=== PATIENT | female | born 1955 | race Caucasian/White ===

== ENCOUNTER 2023-09-24 09:42 | Outpatient (REF) | payer MEDICARE, OTHER, SELFPAY ==
[2023-09-24 13:03] LABS: MANUAL DIFF FLAG NO
[2023-09-24 13:25] LABS: Basophils Absolute Auto 0.1 X10*3/uL (0.0-0.2); Basophils Percent Auto 0.9 % (0-2); Eosinophils Absolute Auto 0.6 X10*3/uL (0.0-0.4); Eosinophils Percent Auto 5.6 % (0-4); Hematocrit 39.1 % (37.0-47.0); Hemoglobin 12.7 g/dl (12.0-16.0); Imm Gran Abs Auto 0.03 X10*3/uL (0.00-0.03); Imm Gran Pct Auto 0.3 % (0.0-0.4); Lymphocytes Absolute Auto 1.9 X10*3/uL (1.2-4.9); Mean Corpuscular HGB Conc 32.5 g/dl (31.0-35.0); Mean Corpuscular Hemoglobin 32.2 pg (27.0-33.0); Mean Corpuscular Volume 99.2 fL (80.0-98.0); Mean Platelet Volume 10.4 fL (9.4-12.3); Monocytes Absolute Auto 0.6 X10*3/uL (0.1-1.2); Monocytes Percent Auto 5.3 % (2-11); Neutrophils Absolute Auto 7.2 x10*3/uL (2.0-8.3); Neutrophils Percent Auto 69.9 % (45-73); Platelet Count 271 X10*3/uL (160-400); Red Blood Count 3.94 X10*6/uL (4.20-5.50); Red Cell Distribution Width 13.3 % (11.0-16.0); White Blood Count 10.3 X10*3/uL (4.8-10.8)
[2023-09-24 13:34] LABS: Anion Gap 13 (12-20); Blood Urea Nitrogen 20 mg/dL (9-16); Calcium 9.1 mg/dL (8.4-10.2); Carbon Dioxide 25 mmol/L (22-29); Chloride 107 mmol/L (96-108); Estimated Glomerular Filt Rate 32; Potassium 4.7 mmol/L (3.3-5.1); Sodium 140 mmol/L (135-145)
[2023-09-24 14:19] LABS: Creatinine Urine 291.26 mg/dL; Total Protein Urine Random 30 mg/dL (<12)
== END 2023-09-24 09:43 | disposition home or self-care (01) ==
LOC: HO.HMGCLDS 09:42
PROVIDERS: Visit Provider Internal Medicine Nephrology
DX: I10 Essential (primary) hypertension (principal)
CPT/HCPCS: 36415; 80051; 82310; 82565; 82570; 84156; 84520; 85025

== ENCOUNTER 2023-09-26 12:15 | Outpatient (AMB) | payer MEDICARE, OTHER, SELFPAY ==
--- NOTE | 2023-09-26 12:14 | HO.NEPHOV ---
HPI HPI Comments History of Present Illness Details I had the pleasure of seeing Anneliese in follow-up of her chronic kidney disease and hypertension. Her blood sugars are well controlled on metformin. She is hypertensive and is on 3 medications including valsartan, atenolol and amlodipine. She has not a smoker. Her dad had ESRD from diabetes mellitus and at age of 76. Her mother's mother had anti GBM disease. She had kidney stones when she was young. She has family history of kidney stones.(daughter and brother). She used to take Aleve in the past but does not take these days. She is on allopurinol for hyperuricemia. She has osteopenia as well as osteoporosis. She denies any hematuria, froth or foam in the urine. She has no history of edema, hearing issues, epistaxis, history of coronary artery disease, renal artery stenosis, congestive heart failure, peripheral arterial disease, carotid stenosis or CVA. She has no history of retinopathy or neuropathy. Her serum creatinine has been stable around 1.6. 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 Calculus of kidney Hypertension Surgical History History of squamous cell carcinoma excision History of parathyroidectomy Family History Father Diabetes Kidney disease Brother Diabetes Hypertension Maternal Grandmother Kidney disease Social History Alcohol intake: never Patient Tobacco Use Status: Never used Tobacco Vital Signs 09/26/23 12:15 Height 5 ft Weight 198 lb 2 oz BMI 38.7 BP 130/70 Blood Pressure Location Lt brachial Position Sitting Pulse 68 Pulse Source Pulse Oximeter Pulse Oximetry (%) 96 Oxygen Delivery Method Room Air Physical Exam Vital Signs: Last Vital Signs Pulse 68 09/26/23 12:15 BP 146/74 H 09/26/23 12:15 Pulse Ox 96 09/26/23 12:15 Oxygen Delivery Method Room Air 09/26/23 12:15 BMI result Body Mass Index 38.7 Const General: comfortable and no acute distress Orientation/consciousness: patient oriented x3 HEENT Head: Yes normocephalic Mouth: Normal oral and palatal mucosa present Eyes EOM: EOMs intact bilaterally Neck Neck: Yes supple Resp Auscultation: clear to auscultation bilaterally Cardio Jugular venous distension: no JVD Rate: regular rate GI Palpation (GI): Soft to palpation Auscultation: normal bowel sounds General: Yes no CVA tenderness Back/Spine/Pelvis Back: no CVA tenderness Skin General skin exam: no rashes or lesions noted Neuro General: patient oriented x3 and moves all extremities Extrem General: Yes no pedal edema Assessment & Plan Assessment & Plan (1) Hypertension: Code(s): I10 - Essential (primary) hypertension Qualifiers: Hypertension type: primary hypertension Qualified Code(s): I10 - Essential (primary) hypertension (2) CKD (chronic kidney disease) stage 3, GFR 30-59 ml/min: Code(s): N18.30 - Chronic kidney disease, stage 3 unspecified Qualifiers: Chronic kidney disease stage 3 subtype: stage 3a (GFR 45-59) Qualified Code(s): N18.31 - Chronic kidney disease, stage 3a Abdifatah Coy has chronic kidney disease for long time likely from hypertension. Doppler of her renal arteries in the past did not show any renal artery stenosis. She is on angiotensin receptor jus. She is on 3 blood pressure medications and her blood pressure has been at goal. She will be benefitted from losing some weight and maintaining low-sodium diet. She tries to keep up with good hydration. She is a great candidate for SGLT2 inhibitor in the future. I did not make any medication changes today. All her questions were answered. Follow-up lab work ordered. Follow-up appointment given. Orders: Orders Creatinine Today I10 - Essential (primary) hypertension, N18.30 - Chronic kidney disease, stage 3 unspecified Blood Urea Nitrogen Today I10 - Essential (primary) hypertension, N18.30 - Chronic kidney disease, stage 3 unspecified Electrolytes Today I10 - Essential (primary) hypertension, N18.30 - Chronic kidney disease, stage 3 unspecified Protein Creatinine Ratio, Ur Today I10 - Essential (primary) hypertension, N18.30 - Chronic kidney disease, stage 3 unspecified Coding Level of Care Code Est Pt Level 4 (08357) Diagnoses Primary hypertension I10 Hypertension type: primary hypertension Stage 3a chronic kidney disease N18.31 Chronic kidney disease stage 3 subtype: stage 3a (GFR 45-59) Results Reviewed Nephrology Results: Hgb 12.7 g/dl (12.0-16.0) 09/24/23 WBC 10.3 X10*3/uL (4.8-10.8) 09/24/23 Plt Count 271 X10*3/uL (160-400) 09/24/23 Sodium 140 mmol/L (135-145) 09/24/23 Potassium 4.7 mmol/L (3.3-5.1) 09/24/23 Chloride 107 mmol/L (96-108) 09/24/23 Carbon Dioxide 25 mmol/L (22-29) 09/24/23 BUN 20 mg/dL (9-16) H 09/24/23 Creatinine 1.61 mg/dL (0.5-1.4) H 09/24/23 Calcium 9.1 mg/dL (8.4-10.2) 09/24/23 Urine Creatinine 291.26 mg/dL 09/24/23 Protein/Creatinin Ratio 0.10 (<0.2) 09/24/23
[2023-09-26 12:15] VITALS: BP 130/70; PULSE 68; O2SAT 96; BMI 38.7
== END 2023-09-26 12:58 | disposition home or self-care (01) ==
LOC: HO.HKA 12:15
PROVIDERS: Visit Provider Internal Medicine Nephrology
DX: I10 Essential (primary) hypertension (principal); N18.31 Chronic kidney disease, stage 3a
CPT/HCPCS: 99214

== ENCOUNTER → 2023-09-26 12:15 | Outpatient (BNVA) | payer MEDICARE, OTHER, SELFPAY | PROVIDERS: Visit Provider Internal Medicine Nephrology | DX: I12.9 Hypertensive chronic kidney disease with stage 1 through stage 4 chronic kidney disease, or unspecified chronic kidney disease (principal); E11.22 Type 2 diabetes mellitus with diabetic chronic kidney disease; N18.31 Chronic kidney disease, stage 3a; Z79.84 Long term (current) use of oral hypoglycemic drugs; Z79.899 Other long term (current) drug therapy | CPT/HCPCS: 99212 ==

== ENCOUNTER 2024-03-21 10:42 | Outpatient (REF) | payer MEDICARE, OTHER, SELFPAY ==
[2024-03-21 14:18] LABS: Anion Gap 13 (12-20); Blood Urea Nitrogen 20 mg/dL (9-16); Carbon Dioxide 22 mmol/L (22-29); Chloride 108 mmol/L (96-108); Estimated Glomerular Filt Rate 38; Potassium 4.9 mmol/L (3.3-5.1); Sodium 138 mmol/L (135-145)
[2024-03-21 14:42] LABS: Creatinine Urine 114.25 mg/dL; Protein/Creatinine Ratio, Ur 0.11 (<0.2); Total Protein Urine Random 13 mg/dL (<12)
== END 2024-03-21 10:43 | disposition home or self-care (01) ==
LOC: HO.HMGCLDS 10:42
PROVIDERS: Visit Provider Internal Medicine Nephrology
DX: I12.9 Hypertensive chronic kidney disease with stage 1 through stage 4 chronic kidney disease, or unspecified chronic kidney disease (principal); N18.30 Chronic kidney disease, stage 3 unspecified
CPT/HCPCS: 36415; 80051; 82565; 82570; 84156; 84520

== ENCOUNTER 2024-03-26 10:20 | Outpatient (AMB) | payer MEDICARE, OTHER, SELFPAY ==
[2024-03-26 10:22] VITALS: BP 124/60; PULSE 63; O2SAT 98; BMI 38.3
--- NOTE | 2024-03-26 10:22 | HO.NEPHOV_ITS ---
Vital Signs 03/26/24 10:22 Height 5 ft Weight 196 lb 4 oz BMI 38.3 BP 124/60 Blood Pressure Location Rt brachial Position Sitting Pulse 63 Pulse Source Pulse Oximeter Pulse Oximetry (%) 98 Oxygen Delivery Method Room Air Intake Visit Reasons: CKD/ 6 MO FU- Conf Employee Development Director Required: No Accompanied by: Self / Same As Patient Allergies No Known Allergies Allergy (Verified 03/26/24 10:25) HPI Comments Details: I had the pleasure of seeing Anneliese in follow-up of her chronic kidney disease and hypertension. Her blood sugars are well controlled on metformin. She is hypertensive and is on 3 medications including valsartan, atenolol and amlodipine. She has not a smoker. Her dad had ESRD from diabetes mellitus and at age of 76. Her mother's mother had anti GBM disease. She had kidney stones when she was young. She has family history of kidney sto maya.(daughter and brother). She used to take Aleve in the past but does not take these days. She is on allopurinol for hyperuricemia. She has osteopenia as well as osteoporosis. She denies any hematuria, froth or foam in the urine. She has no history of edema, hearing issues, epistaxis, history of coronary artery disease, renal artery stenosis, congestive heart failure, peripheral arterial disease, carotid stenosis or CVA. She has no history of retinopathy or neuropathy. 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 Calculus of kidney Hypertension Surgical History History of squamous cell carcinoma excision History of parathyroidectomy Family History Father Diabetes Kidney disease Brother Diabetes Hypertension Maternal Grandmother Kidney disease Social History Alcohol intake: never Patient Tobacco Use Status: Never used Tobacco Review of Systems Const All systems reviewed & are unremarkable except as noted in HPI and below Physical Exam Vital Signs: Last Vital Signs Pulse 63 03/26/24 10:22 BP 124/60 03/26/24 10:22 Pulse Ox 98 03/26/24 10:22 Oxygen Delivery Method Room Air 03/26/24 10:22 BMI result Body Mass Index 38.3 Const General: comfortable and no acute distress Orientation/consciousness: patient oriented x3 HEENT Head: Yes normocephalic Mouth: Normal oral and palatal mucosa present Eyes EOM: EOMs intact bilaterally Neck Neck: Yes supple Resp Auscultation: clear to auscultation bilaterally Cardio Jugular venous distension: no JVD Rate: regular rate GI Palpation (GI): Soft to palpation Auscultation: normal bowel sounds General: Yes no CVA tenderness Back/Spine/Pelvis Back: no CVA tenderness Skin General skin exam: no rashes or lesions noted Neuro General: patient oriented x3 and moves all extremities Extrem General: Yes no pedal edema Results Reviewed Nephrology Results: Hgb 12.7 g/dl (12.0-16.0) 09/24/23 WBC 10.3 X10*3/uL (4.8-10.8) 09/24/23 Plt Count 271 X10*3/uL (160-400) 09/24/23 Sodium 138 mmol/L (135-145) 03/21/24 Potassium 4.9 mmol/L (3.3-5.1) 03/21/24 Chloride 108 mmol/L (96-108) 03/21/24 Carbon Dioxide 22 mmol/L (22-29) 03/21/24 BUN 20 mg/dL (9-16) H 03/21/24 Creatinine 1.38 mg/dL (0.5-1.4) 03/21/24 Calcium 9.1 mg/dL (8.4-10.2) 09/24/23 Urine Creatinine 114.25 mg/dL 03/21/24 Protein/Creatinin Ratio 0.11 (<0.2) 03/21/24 Assessment & Plan Assessment & Plan (1) Hypertension: Code(s): I10 - Essential (primary) hypertension Category: Medical Qualifiers: Hypertension type: primary hypertension Qualified Code(s): I10 - Essential (primary) hypertension (2) CKD (chronic kidney disease) stage 3, GFR 30-59 ml/min: Code(s): N18.30 - Chronic kidney disease, stage 3 unspecified Category: Medical Qualifiers: Chronic kidney disease stage 3 subtype: stage 3a (GFR 45-59) Qualified Code(s): N18.31 - Chronic kidney disease, stage 3a Abdifatah Coy has chronic kidney disease for long time likely from hypertension. Doppler of her renal arteries in the past did not show any renal artery stenosis. She is on angiotensin receptor jus. She is on 3 blood pressure medications and her blood pressure has been at goal. She will be benefitted from losing some weight and maintaining low-sodium diet. She tries to keep up with good hydration. She is a great candidate for SGLT2 inhibitor in the future. I did not make any medication changes today. All her questions were answered. Follow-up lab work ordered. Follow-up appointment given. Orders: Orders Creatinine 03/26/24 I10 - Essential (primary) hypertension, N18.31 - Chronic kidney disease, stage 3a Creatinine 6 Months I10 - Essential (primary) hypertension, N18.31 - Chronic kidney disease, stage 3a Blood Urea Nitrogen 6 Months I10 - Essential (primary) hypertension, N18.31 - Chronic kidney disease, stage 3a Blood Urea Nitrogen 03/26/24 I10 - Essential (primary) hypertension, N18.31 - Chronic kidney disease, stage 3a Electrolytes 03/26/24 I10 - Essential (primary) hypertension, N18.31 - Chronic kidney disease, stage 3a Electrolytes 6 Months I10 - Essential (primary) hypertension, N18.31 - Chronic kidney disease, stage 3a Vitamin D 25-OH Total 03/26/24 I10 - Essential (primary) hypertension, N18.31 - Chronic kidney disease, stage 3a Coding Level of Care Code Est Pt Level 4 (57714) Diagnoses Primary hypertension I10 Hypertension type: primary hypertension Stage 3a chronic kidney disease N18.31 Chronic kidney disease stage 3 subtype: stage 3a (GFR 45-59)
== END 2024-03-26 10:43 | disposition home or self-care (01) ==
PROVIDERS: Visit Provider Internal Medicine Nephrology
DX: I10 Essential (primary) hypertension (principal); N18.31 Chronic kidney disease, stage 3a
CPT/HCPCS: 99214

== ENCOUNTER → 2024-03-26 10:20 | Outpatient (BNVA) | payer MEDICARE, OTHER, SELFPAY | PROVIDERS: Visit Provider Internal Medicine Nephrology | DX: I12.9 Hypertensive chronic kidney disease with stage 1 through stage 4 chronic kidney disease, or unspecified chronic kidney disease (principal); E11.22 Type 2 diabetes mellitus with diabetic chronic kidney disease; N18.31 Chronic kidney disease, stage 3a; Z79.84 Long term (current) use of oral hypoglycemic drugs; Z79.899 Other long term (current) drug therapy | CPT/HCPCS: 99212 ==

== ENCOUNTER 2024-09-22 10:20 | Outpatient (REF) | payer MEDICARE, OTHER, SELFPAY ==
--- OUTSIDE RECORDS SUMMARY | 2024-09-22 11:40 | XMS_ITS | Clinical Summary ---
Author Organization [facility] Address [address] [place] [address] Phone Care Team Providers Care Still Runner Name Role Phone Julia Garrido [employer]IN[employer]-C Primary Care Provider + Allergies No known active allergies Medications allopurinol (ZYLOPRIM) 100 MG tablet Take 50 mg by mouth in the morning. 02/06/2022 Active amLODIPine (NORVASC) 10 MG tablet Take 10 mg by mouth in the morning. 06/17/2021 Active atenolol (TENORMIN) 25 MG tablet Take 25 mg by mouth in the morning. Active atorvastatin (LIPITOR) 40 MG tablet Take 40 mg by mouth in the morning. Active valsartan (DIOVAN) 320 MG tablet Take 320 mg by mouth in the morning. Active omeprazole OTC (PriLOSEC OTC) 20 MG EC tablet Take 20 mg by mouth in the morning. Active metFORMIN (GLUCOPHAGE) 500 MG tablet Take 500 mg by mouth in the morning and 500 mg in the evening. Take with meals. Active Calcium-Magnesi um-Vitamin D (CITRACAL CALCIUM+D PO) Take 650 mg by mouth 2 (two) times a day Active cholecalciferol (VITAMIN D-3) 25 MCG (1000 UT) capsule Take 1,000 Units by mouth 1 (one) time each day Active Multiple Vitamin (multivitamin) tablet Take 1 tablet by mouth 1 (one) time each day Active Active Problems Problem Noted Date Diagnosed Date Stage 3a chronic kidney disease 03/21/2023 Essential hypertension 02/06/2022 Stage 3b chronic kidney disease 12/17/2021 Overview (10/23/2022): Baseline 1.4-1.5 creatinine Baseline GFR 31-41 Resolved Problems Problem Noted Date Diagnosed Date Resolved Date Other osteoporosis without c urrent pathological fracture 06/28/2022 10/24/2022 Overview (10/24/2022): Last Assessment & Plan: The patient has progressed to osteoporosis with just calcium and vitamin D supplementation. She has decreased GFR so I recommend Prolia subcutaneous injections. She informs me that she does plan on traveling to [place] and since this medication is administered every 6 months she needs to check her schedule first to determine when she should start injections. She is going to contact our office for a date that is suitable for her to start Prolia administration. Chronic cough 03/16/2022 10/24/2022 Primary osteoarthritis of left knee 03/16/2022 10/24/2022 Idiopathic chronic gout of l eft knee without tophus 12/21/2021 10/23/2022 Type 2 diabetes mellitus 12/17/202104/2023 Severe obesity 12/06/2021 10/23/2022 Osteopenia 07/04/2018 10/23/2022 Overview (10/23/2022): Last Assessment & Plan: The patient should continue calcium and vitamin D supplementation. She is due for repeat DXA scan in June 2022 the study has been requested. In the meantime N-telopeptide levels are stable. Hopefully she will have improved bone mineral density prior to the follow-up visit in 1 year. Vitamin D deficiency 07/04/2018 023 Overview (10/23/2022): Last Assessment & Plan: Vitamin D levels are within the reference range with cholecalciferol 2000 units and possibly an additional 400 units of vitamin D. No changes to current regimen. Nontoxic uninodular goiter 04/08/2018 0 10/23/2022 Overview (10/23/2022): She is due for repeat ultrasound of the thyroid gland in April 2023. Last Assessment & Plan: He has a left lobe nodule with not very suspicious features but it was biopsied prior to parathyroidectomy to ensure it was benign otherwise the patient may require total parathyroidectomy right lobectomy in addition to parathyroidectomy. It was found to be benign. She repeated ultrasound 2 years after her last. This showed that the nodule has decreased in size. She now has to repeat the ultrasound in 2022. This is something that she should remember because the ultrasound can be potentially ordered by her primary care physician or me. Again if the ultrasound in 2022 is stable then she should repeat the ultrasound by 2027. After 11 years of monitoring she does not require further monitoring assuming the nodule has remained stable. Primary hyperparathyroidism 04/08/2018 10/23/2022 Overview (10/23/2022): Last Assessment & Plan: Status post parathyroidectomy intact PTH levels are now within the reference range so it does appear that she no longer has hyperparathyroidism. Would not work this up further. Immunizations Name Administration Dates Next Due Influenza Split High Dose Preservative Free IM 0 04/11/2021 Influenza, Quadrivalent, Preservative Free 04/29 Influenza, Unspecified 04/30/2019,04/01/2018 Sharmin SARS-COV-2 09/25/2020 Pneumococcal Conjugate 13-Valent 02/12/2019 Shingrix 09/09/2019,05/27/2019 Td 11/19/2006 Tdap 12/19/2013 Family History Medical History Relation Comments Diabetes Brother Hypertension Brother Diabetes Father Kidney disease Father Kidney disease Maternal Grandmother Relation Status Comments Brother Father Maternal Grandmother Mother Social History Tobacco Use Types Packs/Day Years Used Date Smoking Tobacco: Never Smokeless Tobacco: Never Tobacco Cessation:Counseling Given: Not Answered Alcohol Use Standard Drinks/Week Comments Never 0 (1 standard drink = 0.6 oz pur e alcohol) Comments Unknown Sex and Gender Information Value Date Recorded Sex Assigned at Not on file Legal Sex Female 10:04 AM EDT Gender Identity Not on file Sexual Orientation Not on file Last Filed Vital Signs Vital Sign Reading Time Taken Comments Blood Pressure 114/70 03/21/2023 1:55 PM EDT Pulse 64 10/24/2022 9:53 AM EDT Temperature - - Respiratory Rate - - Oxygen Saturation - - Inhaled Oxygen Concentration - - Weight 89.4 kg (197 lb 3.2 oz) 03/21/2023 1:55 P M EDT Height - - Body Mass Index - - Plan of Treatment Health Maintenance Due Date Last Done Comments Breast Cancer Screening 1955 Colorectal Cancer Screening: Annual FOBT 2002 Colorectal Cancer Screening: Colonoscopy 2002 Colorectal Cancer Screening: Sigmoidoscopy 2002 Pneumococcal Vaccine: 65+ Years (2 of 2 - PPSV23 or PCV20) 04/09/2019 02/12/2019 Influenza Vaccine (#1) 2024 1, 04/29/2020, 04/30/2019, Additional history exists Hepatitis B Vaccine Aged Out No longe r eligible based on patient's age to complete this topic Insurance [facility] [place] [address] MEDICARE [facility] [place] [address] MEDICARE [facility] Care Teams Still Runner Relationship Specialty Start Date End Date Julia Garrido NP-C [address], [address] [place] [address] PCP - General Nurse Practitioner 10/24/22
[2024-09-22 13:46] LABS: Anion Gap 14 (12-20); Blood Urea Nitrogen 23 mg/dL (9-16); Carbon Dioxide 22 mmol/L (22-29); Chloride 109 mmol/L (96-108); Estimated Glomerular Filt Rate 32; Potassium 5.3 mmol/L (3.3-5.1); Sodium 140 mmol/L (135-145)
== END 2024-09-22 10:21 | disposition home or self-care (01) ==
LOC: HO.HMGCLDS 10:20
PROVIDERS: PCP Nurse Practitioner Primary Care; Visit Provider Internal Medicine Nephrology
DX: N18.31 Chronic kidney disease, stage 3a (principal); I10 Essential (primary) hypertension
CPT/HCPCS: 36415; 80051; 82565; 84520

== ENCOUNTER 2024-09-24 09:50 | Outpatient (AMB) | payer MEDICARE, OTHER, SELFPAY ==
--- NOTE | 2024-09-24 09:54 | HO.NEPHOV_ITS ---
Vital Signs 09/24/24 09:55 Height 5 ft Weight 197 lb 6 oz BMI 38.5 BP 138/70 Blood Pressure Location Lt brachial Position Sitting Pulse 68 Pulse Source Pulse Oximeter Pulse Oximetry (%) 96 Oxygen Delivery Method Room Air Intake Visit Reasons: CKD- Cell is disconnected-Home no voicemail Receiving Operator Required: No Accompanied by: Self / Same As Patient Allergies No Known Allergies Allergy (Verified 09/24/24 09:55) HPI Comments Details: Anneliese was seen in follow-up of her chronic kidney disease and hypertension. Her blood sugars are well controlled on metformin. She is hypertensive and is on 3 medications including valsartan, atenolol and amlodipine. She has not a smoker. Her dad had ESRD from diabetes mellitus and at age of 76. Her mother's mother had anti GBM disease. She had kidney stones when she was young. She has family history of kidney stones.(daughter and brother). She used to take Aleve in the past but does not take these days. She is on allopurinol for hyperuricemia. She has osteopenia as well as osteoporosis. She denies any hematuria, froth or foam in the urine. She has no history of edema, hearing issues, epistaxis, history of coronary artery disease, renal artery stenosis, congestive heart failure, peripheral arterial disease, carotid stenosis or CVA. She has no history of retinopathy or neuropathy. 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 Calculus of kidney Hypertension Surgical History History of squamous cell carcinoma excision History of parathyroidectomy Family History Father Diabetes Kidney disease Brother Diabetes Hypertension Maternal Grandmother Kidney disease Social History Alcohol intake: never Patient Tobacco Use Status: Never used Tobacco Review of Systems Const All systems reviewed & are unremarkable except as noted in HPI and below Physical Exam Vital Signs: Last Vital Signs Pulse 68 09/24/24 09:55 BP 138/70 09/24/24 09:55 Pulse Ox 96 09/24/24 09:55 Oxygen Delivery Method Room Air 09/24/24 09:55 BMI result Body Mass Index 38.5 Const General: comfortable and no acute distress Orientation/consciousness: patient oriented x3 HEENT Head: Yes normocephalic Mouth: Normal oral and palatal mucosa present Eyes EOM: EOMs intact bilaterally Neck Neck: Yes supple Resp Auscultation: clear to auscultation bilaterally Cardio Jugular venous distension: no JVD Rate: regular rate GI Palpation (GI): Soft to palpation Auscultation: normal bowel sounds General: Yes no CVA tenderness Back/Spine/Pelvis Back: no CVA tenderness Skin General skin exam: no rashes or lesions noted Neuro General: patient oriented x3 and moves all extremities Extrem General: Yes no pedal edema Results Reviewed Nephrology Results: Hgb 12.7 g/dl (12.0-16.0) 09/24/23 WBC 10.3 X10*3/uL (4.8-10.8) 09/24/23 Plt Count 271 X10*3/uL (160-400) 09/24/23 Sodium 140 mmol/L (135-145) 09/22/24 Potassium 5.3 mmol/L (3.3-5.1) H 09/22/24 Chloride 109 mmol/L (96-108) H 09/22/24 Carbon Dioxide 22 mmol/L (22-29) 09/22/24 BUN 23 mg/dL (9-16) H 09/22/24 Creatinine 1.61 mg/dL (0.5-1.4) H 09/22/24 Calcium 9.1 mg/dL (8.4-10.2) 09/24/23 Urine Creatinine 114.25 mg/dL 03/21/24 Protein/Creatinin Ratio 0.11 (<0.2) 03/21/24 Assessment & Plan Assessment & Plan (1) CKD (chronic kidney disease) stage 3, GFR 30-59 ml/min: Code(s): N18.30 - Chronic kidney disease, stage 3 unspecified Category: Medical Qualifiers: Chronic kidney disease stage 3 subtype: stage 3a (GFR 45-59) Qualified Code(s): N18.31 - Chronic kidney disease, stage 3a (2) Hypertension: Code(s): I10 - Essential (primary) hypertension Category: Medical Qualifiers: Hypertension type: primary hypertension Qualified Code(s): I10 - Essential (primary) hypertension (3) Hyperkalemia: Code(s): E87.5 - Hyperkalemia Category: Medical Plan Anneliese has chronic kidney disease for long time likely from hypertension. Doppler of her renal arteries in the past did not show any renal artery stenosis. She is on angiotensin receptor jus. She is on three blood pressure medications and her blood pressure has been at goal. She will be benefitted from losing some weight and maintaining low-sodium diet. She tries to keep up with good hydration. She is a great candidate for SGLT2 inhibitor after discontinuing metformin. I gave her a list of food with high K. Her repeat K is ordered. I did not make any medication changes today. Follow-up appointmen t given. Orders: Orders Electrolytes 3 Months E87.5 - Hyperkalemia, I10 - Essential (primary) hypertension, N18.31 - Chronic kidney disease, stage 3a Creatinine 3 Months E87.5 - Hyperkalemia, I10 - Essential (primary) hypertension, N18.31 - Chronic kidney disease, stage 3a Blood Urea Nitrogen 3 Months E87.5 - Hyperkalemia, I10 - Essential (primary) hypertension, N18.31 - Chronic kidney disease, stage 3a Coding Level of Care Code Est Pt Level 4 (97272) Diagnoses Stage 3a chronic kidney disease N18.31 Chronic kidney disease stage 3 subtype: stage 3a (GFR 45-59) Primary hypertension I10 Hypertension type: primary hypertension Hyperkalemia E87.5
[2024-09-24 09:55] VITALS: BP 138/70; PULSE 68; O2SAT 96; BMI 38.5
--- OUTSIDE RECORDS SUMMARY | 2024-09-24 10:57 | XMS_ITS | Clinical Summary ---
Author Organization [facility] Address [address] [place] [address] Phone Care Team Providers Care Watch Dial Maker Name Role Phone Julia Garrido MOLECULAR GENETIC PATHOLOGIST-C Primary Care Provider + Allergies No known [...] that she does plan on traveling to [place] and since this medication is administered every [...] patient's age to complete this topic Insurance [facility] [id number] MEDICARE [facility] [place] [address] MEDICARE [facility] Care Teams Watch Dial Maker Relationship Specialty Start Date End Date Julia Garrido NP-C [address], [address] [place] [address] PCP - General Nurse Practitioner 10/24/22
== END 2024-09-24 10:15 | disposition home or self-care (01) ==
LOC: HO.HKA 09:50
PROVIDERS: PCP Nurse Practitioner Primary Care; Visit Provider Internal Medicine Nephrology
DX: N18.31 Chronic kidney disease, stage 3a (principal); I10 Essential (primary) hypertension; E87.5 Hyperkalemia
CPT/HCPCS: 99214

== ENCOUNTER → 2024-09-24 09:50 | Outpatient (BNVA) | payer MEDICARE, OTHER, SELFPAY | PROVIDERS: PCP Nurse Practitioner Primary Care; Visit Provider Internal Medicine Nephrology | DX: I12.9 Hypertensive chronic kidney disease with stage 1 through stage 4 chronic kidney disease, or unspecified chronic kidney disease (principal); N18.31 Chronic kidney disease, stage 3a; E87.5 Hyperkalemia | CPT/HCPCS: 99212 ==

== ENCOUNTER 2024-12-18 10:46 | Outpatient (REF) | payer MEDICARE, OTHER, SELFPAY ==
--- OUTSIDE RECORDS SUMMARY | 2024-12-18 12:39 | XMS_ITS | Clinical Summary ---
Author Organization [facility] Address [address] [place] [address] Phone Care Team Providers Care Automobile Parker Name Role Phone Julia Garrido ASP WEB DEVELOPER-C Primary Care Provider + Allergies No known [...] that she does plan on traveling to [place] and since this medication is administered every [...] Would not work this up further. Immunizations Immunization Administration Dates Next Due Influenza Split High [...] Colorectal Cancer Screening: Sigmoidoscopy 2002 Pneumococcal Vaccine: 50+ Years (2 of 2 - PPSV23, PCV20, or PCV21) 04/09/2019 02/12/2019 Influenza Vaccine (Season Ended) 2025 04/11/2021, 04/29/2020, 04/30/2019, Additional history exists Hepatitis B Vaccine Aged Out No longe r eligible based on patient's age to complete [place] [id number] Medicare [facility] [place] [id number] Medicare [facility] Care Teams Automobile Parker Relationship Specialty Start Date End Date Julia Garrido NP-C [address], [address] [place] [address] PCP - General Nurse Practitioner 10/24/22
[2024-12-18 14:58] LABS: Anion Gap 12 (12-20); Blood Urea Nitrogen 26 mg/dL (9-16); Carbon Dioxide 20 mmol/L (22-29); Chloride 111 mmol/L (96-108); Estimated Glomerular Filt Rate 28; Potassium 4.4 mmol/L (3.3-5.1); Sodium 139 mmol/L (135-145)
== END 2024-12-18 10:47 | disposition home or self-care (01) ==
LOC: HO.HMGCLDS 10:46
PROVIDERS: PCP Nurse Practitioner Primary Care; Visit Provider Internal Medicine Nephrology
DX: E87.5 Hyperkalemia (principal); N18.31 Chronic kidney disease, stage 3a; I10 Essential (primary) hypertension
CPT/HCPCS: 36415; 80051; 82306; 82565; 84520

== ENCOUNTER 2025-02-04 14:16 | Outpatient (AMB) | payer MEDICARE, OTHER, SELFPAY ==
[2025-02-04 14:24] VITALS: BP 140/70; PULSE 71; O2SAT 96; BMI 37.4
--- NOTE | 2025-02-04 14:24 | HO.NEPHOV_ITS ---
Vital Signs 02/04/25 14:24 Height 5 ft Weight 191 lb 8 oz BMI 37.4 BP 140/70 H Blood Pressure Location Rt brachial Position Sitting Pulse 71 Pulse Source Pulse Oximeter Pulse Oximetry (%) 96 Oxygen Delivery Method Room Air Intake Visit Reasons: R/S 01/28/25-[facility] Demo Specialist Required: No Accompanied by: Self / Same As Patient Allergies No Known Allergies Allergy (Verified 02/04/25 14:24) HPI Comments Details: Anneliese was seen in follow-up of her chronic kidney disease and hypertension. Her blood sugars are well controlled on metformin. She is hypertensive and is on 3 medications including valsartan, atenolol and amlodipine. She has not a smoker. Her dad had ESRD from diabetes mellitus and at age of 76. Her mother's mother had anti GBM disease. She had kidney stones when she was young. She has family history of kidney stones.(daughter and brother). She used to take Aleve in the past but does not take these days. She is on allopurinol for hyperuricemia. She has osteopenia as well as osteoporosis. She denies any hematuria, froth or foam in the urine. She has no history of edema, hearing issues, epistaxis, history of coronary artery disease, renal artery stenosis, congestive heart failure, peripheral arterial disease, carotid steno sis or CVA. She has no history of retinopathy or neuropathy. 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 Calculus of kidney Hypertension Surgical History History of squamous cell carcinoma excision History of parathyroidectomy Family History Father Diabetes Kidney disease Brother Diabetes Hypertension Maternal Grandmother Kidney disease Social History Alcohol intake: never Patient Tobacco Use Status: Never used Tobacco Review of Systems Const All systems reviewed & are unremarkable except as noted in HPI and below Physical Exam Vital Signs: Last Vital Signs Pulse 71 02/04/25 14:24 BP 140/70 H 02/04/25 14:24 Pulse Ox 96 02/04/25 14:24 Oxygen Delivery Method Room Air 02/04/25 14:24 BMI result Body Mass Index 37.4 Const General: comfortable and no acute distress Orientation/consciousness: patient oriented x3 HEENT Head: Yes normocephalic Mouth: Normal oral and palatal mucosa present Eyes EOM: EOMs intact bilaterally Neck Neck: Yes supple Resp Auscultation: clear to auscultation bilaterally Cardio Jugular venous distension: no JVD Rate: regular rate GI Palpation (GI): Soft to palpation Auscultation: normal bowel sounds General: Yes no CVA tenderness Back/Spine/Pelvis Back: no CVA tenderness Skin General skin exam: no rashes or lesions noted Neuro General: patient oriented x3 and moves all extremities Extrem General: Yes no pedal edema Results Reviewed Nephrology Results: Hgb, (12.0-16.0) 12.7 g/dl 09/24/23 WBC, (4.8-10.8) 10.3 X10*3/uL 09/24/23 Plt Count, (160-400) 271 X10*3/uL 09/24/23 Sodium, (135-145) 139 mmol/L 12/18/24 Potassium, (3.3-5.1) 4.4 mmol/L 12/18/24 Chloride, (96-108) 111 mmol/L H 12/18/24 Carbon Dioxide, (22-29) 20 mmol/L L 12/18/24 BUN, (9-16) 26 mg/dL H 12/18/24 Creatinine, (0.5-1.4) 1.80 mg/dL H 12/18/24 Calcium, (8.4-10.2) 9.1 mg/dL 09/24/23 Urine Creatinine 114.25 mg/dL 03/21/24 Protein/Creatinin Ratio, (<0.2) 0.11 03/21/24 Assessment & Plan Assessment & Plan (1) Hypertension: Code(s): I10 - Essential (primary) hypertension Category: Medical Qualifiers: Hypertension type: primary hypertension Qualified Code(s): I10 - Essential (primary) hypertension (2) CKD (chronic kidney disease) stage 3, GFR 30-59 ml/min: Code(s): N18.30 - Chronic kidney disease, stage 3 unspecified Category: Medical Qualifiers: Chronic kidney disease stage 3 subtype: stage 3a (GFR 45-59) Qualified Code(s): N18.31 - Chronic kidney disease, stage 3a Abdifatah Coy has chronic kidney disease for long time likely from hypertension. Doppler of her renal arteries in the past did not show any renal artery stenosis. She is on angiotensin receptor jus. She is on three blood pressure medications and her blood pressure has been at goal. She will be benefitted from losing some weight and maintaining low-sodium diet. She tries to keep up with good hydration. She is on SGLT2 inhibitor. If her serum creatinine goe sup, I plan to back off on ARB. I did not make any medication changes today. Follow-up appointment given Orders: Orders Creatinine 2 Months I10 - Essential (primary) hypertension, N18.31 - Chronic kidney disease, stage 3a Blood Urea Nitrogen 2 Months I10 - Essential (primary) hypertension, N18.31 - Chronic kidney disease, stage 3a Electrolytes 2 Months I10 - Essential (primary) hypertension, N18.31 - Chronic kidney disease, stage 3a Coding Level of Care Code Est Pt Level 4 (80240) Diagnoses Primary hypertension I10 Hypertension type: primary hypertension Stage 3a chronic kidney disease N18.31 Chronic kidney disease stage 3 subtype: stage 3a (GFR 45-59)
--- OUTSIDE RECORDS SUMMARY | 2025-02-04 14:58 | XMS_ITS | Clinical Summary ---
Author Organization [facility] Address [address] [place] [id number] Phone Care Team Providers Care Postal Worker Name Role Phone Julia Garrido NP Primary Care Provid er Allergies No known active allergies Medications omeprazole (PRILOSEC) 20 MG tablet Take 20 mg by mouth daily. Active atenolol (TENORMIN) 25 MG tablet Take 25 mg by mouth daily. Active CALCIUM ORAL Take 1 tablet by mouth 2 (two) times a day. Active valsartan (DIOVAN) 320 MG tablet Take 320 mg by mouth daily. Active atorvastatin (LIPITOR) 40 MG tablet Take 40 mg by mouth daily. Active amLODIPine (NORVASC) 10 MG tablet Take 10 mg by mouth daily. 1 Active cholecalciferol , vitamin D3, 25 mcg (1,000 unit) capsuleIndicati ons:Osteopenia of right hip TAKE 1 CAPSULE BY MOUTH EVERY DAY. 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 45 tablet 3 2 Active fluticasone propionate (FLOVENT HFA) 44 mcg/actuation inhaler Inhale 1 puff into the lungs 2 (two) times a day as needed (cough). 10.6 g 1 2 Active albuterol (PROAIR HFA) 90 mcg/actuation inhalerIndicati ons:Chronic cough Inhale 2 puffs into the lungs every 4 (four) hours as needed for wheezing or shortness of breath/dyspnea. 8.5 g 2 2 Active metFORMIN (GLUCOPHAGE) 500 MG tabletIndicatio ns:Type 2 diabetes mellitus with stage 3b chronic kidney disease, without long-term current use of insulin TAKE 1 TABLET TWICE A DAY WITH MEALS 180 tablet 1 4 Active Additional Information Patient not taking.Reported on 12/31/2024 JARDIANCE 25 mg tablet Take 25 mg by mouth daily. 5 Active Active Problems Problem Noted Date Diagnosed Date Other osteoporosis without current pathological fracture 06/28/2022 Assessment & Plan (07/01/2024 9:30 AM EST): The patient continues with calcium vitamin D supplements. Today she presents for her third Prolia injection. She has done very well status post parathyroidectomy with antiresorptive medications. The DXA scan shows that she has significant improvement and spine and total hip. The femoral neck did not show significant improvement but the T-scores last showing that there has been improvement. She will follow in 6 months with the nurse for Prolia injection in 1 year with me for management of osteoporosis and Prolia ministration. She was advised she needs to obtain lab work in 6 months prior to seeing the nurse and again in 1 year before seeing me. The lab work in a years time has to be done fasting without exercise and she should try to get it done 2 weeks prior to the visit. Assessment & Plan (06/28/2023 9:48 AM EST): She continues with calcium and vitamin D supplements and has decided to proceed with Prolia as she has Medicare so this is usually covered I do not need to do prior authorization. I will give her her first injection today. Assessment & Plan (06/28/2022 9:01 AM EST): The patient has progressed to osteoporosis with just calcium and vitamin D supplementation. She has decreased GFR so I recommend Prolia subcutaneous injections. She informs me that she does plan on traveling to [place] and since this medication is administered every 6 months she needs to check her schedule first to determine when she should start injections. She is going to contact our office for a date that is suitable for her to start Prolia administration. Chronic cough 03/16/2022 Primary osteoarthritis of left knee 03/16/2022 Essential hypertension 02/06/2022 Idiopathic chronic gout of left knee without top hus 12/21/2021 Stage 3b chronic kidney disease 12/17/2021 Overview (12/17/2021): Baseline 1.4-1.5 creatinine Baseline GFR 31-41 Type 2 diabetes mellitus wit h stage 3b chronic kidney disease, without long-term current use of insulin 12/17/2021 Class 2 severe obesity with body mass index (BMI) of 35 to 39.9 with serious comorbidity 12/06/2021 Vitamin D deficiency 07/04/2018 Assessment & Plan (02/17/2020 8:55 AM EDT): Vitamin D levels are within the reference range with cholecalciferol 2000 units and possibly an additional 400 units of vitamin D. No changes to current regimen. Assessment & Plan (10/04/2018 12:37 PM EDT): Vitamin D level improved but still deficient continue cholecalciferol 2000 units we will check a basic panel to see if the calcium levels increased while on vitamin D supplementation. Assessment & Plan (07/04/2018 2:37 PM EST): The patient is vitamin D deficient normally I will prescribed ergocalciferol 50,000 units to normalize but this may be potentially dangerous for patient who already has hypercalcemia I will prescribed cholecalciferol 2000 units daily and repeat levels in 3 months time. I did warn her that the serum calcium may increase that may cause increased symptoms of constipation irritability, polydipsia polyuria, if so she should call me and inform me. Primary hyperparathyroidism 04/08/2018 Assessment & Plan (02/17/2020 8:54 AM EDT): Status post parathyroidectomy intact PTH levels are now within the reference range so it does appear that she no longer has hyperparathyroidism. Would not work this up further. Assessment & Plan (02/06/2019 9:06 AM EDT): She underwent parathyroidectomy of the left and right superior parathyroid glands I do not have intact PTH levels I assume that these are within the reference range I will request intact PTH prior to the follow-up visit in approximately 1 year. Assessment & Plan (11/15/2018 8:47 AM EDT): The patient is being worked up for parathyroidectomy she will follow with Dr. Engel and I have advised her to return for follow-up after the surgery at that point we can proceed with further management of osteopenia. Assessment & Plan (10/04/2018 12:37 PM EDT): She has at least 2 indications for parathyroidectomy I will refer her for parathyroidectomy at [facility] with Dr. David Engel. Assessment & Plan (07/04/2018 2:36 PM EST): The patient has primary hyperparathyroidism she has at least 2 risk factors for parathyroidectomy if the serum calcium were to increase this will be a third. At this point I think that we can give her a small dose of vitamin D like at 2000 units daily to normalize the vitamin D and if the serum calcium rises above 11.3 then this will be a third indication. Nevertheless, she has a high risk for major osteoporotic fracture so technically we do not need the third risk if the patient is willing to have parathyroidectomy. I will give the patient some opportunity to think about it while we supplement vitamin D. Assessment & Plan (04/08/2018 3:46 PM EDT): I suspect that the patient has primary hyperparathyroidism based on elevated serum calcium and intact PTH levels. I need other lab work to confirm this such as 1, 25 dihydroxy vitamin D which is usually elevated in primary hyperparathyroidism. I will also check vitamin D levels. I will request a 24-hour urine calcium levels to see if these are elevated. I have also requested a DEXA scan for evaluation of osteopenia/osteoporosis including forearm bone mineral density measurement because hypoparathyroidism affects cortical bone first. I will request a CBC and if the patient is anemic I will check serum protein electrophoresis. I do not have a strong suspicion of multiple myeloma because the total protein is not elevated although she does have low albumin and low GFR. Nontoxic uninodular goiter 04/08/2018 Overview (06/28/2021): She is due for repeat ultrasound of the thyroid gland in April 2023. Assessment & Plan (07/01/2024 9:24 AM EST): The left lobe nodule appears to have decreased by 5% in the last 3 years at this point we will repeat ultrasound in 5 years time by 04/19/2028. If at that time the nodule is stable in size she does not need to continue serial ultrasound monitoring you usually monitor for 11 years. Assessment & Plan (06/28/2023 9:45 AM EST): The left lobe nodule appears to have decreased by 5% in the last 3 years at this point we will repeat ultrasound in 5 years time by 04/19/2028. If at that time the nodule is stable in size she does not need to continue serial ultrasound monitoring you usually monitor for 11 years. Assessment & Plan (06/28/2022 9:03 AM EST): She is due for repeat ultrasound on 04/19/2023 this has been requested. Assessment & Plan (06/29/2020 9:00 AM EST): He has a left lobe nodule with [...] monitoring assuming the nodule has remained stable. Assessment & Plan (02/17/2020 8:54 AM EDT): Patient with a nontoxic multinodular goiter nodules have been benign. She is due for repeat ultrasound in April. This has been requested. I asked her to call the radiology department if they do not call her to get the study done. She will be due for repeat ultrasound in 3 years time by 2022 after that point. Assessment & Plan (02/06/2019 9:05 AM EDT): Due for repeat ultrasound on 04/16/2020. I will not order this now. I will have her return in a year so I can request the studies. She would then have repeat ultrasound in 3 years then 5 years. At that point she would have completed serial monitoring. That is assuming she has had no changes. Assessment & Plan (11/15/2018 8:47 AM EDT): She has a large left lobe nodule that appears benign on sonogram with spongiform characteristics. Because the patient was undergoing parathyroidectomy biopsy was performed to ensure that the thyroid nodule is benign and this was in fact confirmed. At this point it is unclear if the patient is going to have left lobectomy. As per the patient she did discuss with Dr. 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 If this happens she will not require monitoring of the thyroid gland. If the lobe remains intact I do not really believe that we need to be too aggressive with monitoring of the spongiform nodule. My recommendation probably will be to repeat ultrasound in 2 years and then follow the regular guidelines which will be 3 years and 5 years. Again if she does have left lobectomy then we will not need to do any ultrasounds. She may require thyroxine supplementation and will just have to wait and see. Assessment & Plan (10/04/2018 12:36 PM EDT): Schedule the patient for ultrasound-guided fine-needle aspiration to biopsy left lobe nodule. This is to ensure that the nodule is not malignant before she proceeds with parathyroidectomy. Assessment & Plan (07/04/2018 2:39 PM EST): The patient was found to have a large left lobe nodule measuring 2.6 x 2.3 x 2.3 cm that does not appear malignant it is heterogeneous has internal vascularity but was labeled TI- RADS 3. I think if we were to proceed with parathyroidectomy I will feels safer to perform biopsy to ensure it was not malignant before doing surgery. If we decide to do surgery I will schedule her for ultrasound-guided fine-needle aspiration. Assessment & Plan (04/08/2018 3:57 PM EDT): On physical exam the patient appears to have a left lobe thyroid nodule. I will refer her for ultrasound of the thyroid gland. I requested TSH with reflex free T4 and TPO antibodies for evaluation of Mansoor's thyroiditis. Resolved Problems Problem Noted Date Diagnosed Date Resolved Date Osteopenia of right hip 07/04/201806/15 Assessment & Plan (06/28/2021 8:50 AM EST): The patient should continue calcium and vitamin D supplementation. She is due for repeat DXA scan in June 2022 the study has been requested. In the meantime N-telopeptide levels are stable. Hopefully she will have improved bone mineral density prior to the follow-up visit in 1 year. Assessment & Plan (06/29/2020 9:06 AM EST): She did have improvement of the lumbar spine and right hip after parathyroidectomy but the left hip worsen the left forearm worsen but is still not in the osteopenic range. The left hip is in the osteopenic range but the FRAX score is now below 20% for major osteoporotic fracture and for hip is less than 3%. This is an improvement because previously it was much higher. At this point based on the FRAX score I would not recommend antiresorptive medications. She should increase her calcium intake because her dietary calcium intake is very low so I encouraged her to take 1 tablet twice a day. Although I think that dietary calcium is better. However she is not going to take the dietary calcium she might as well take the supplements. She should continue cholecalciferol 2000 units daily. She is due for repeat DEXA scan in 2 years x 06/24/2022. I will give the patient a follow-up appointment in a year although I am not going to be doing anything basically the follow-up is a little looser to follow-up. I can check N-telopeptide levels. I could also check vitamin D and comprehensive levels but she informs me that she is going to see her primary care next week so he is probably going to request lab work so I rather not schedule lab work for a year from now if he is going to obtain blood work. Assessment & Plan (02/17/2020 8:56 AM EDT): She has osteopenia of the right hip increased FRAX score which will indicate the need for antiresorptive therapy. We have not done this because she underwent parathyroidectomy. She is due for repeat DEXA scan in June 2020. The study has been requested. Based on the results and recalculation of FRAX scores will determine if she will require antiresorptive medications in the meantime she should to new on vitamin D supplementation and Citracal. The question is how much calcium she actually getting in her diet she needs to review her medications when she gets home if she is not getting 1200 mg of calcium on a daily basis then she may need to take 1 tablet of Citracal twice a day with food at separate meals not at the same time. She will follow in June after her DEXA scan. Again for the DEXA scan she may have to call the radiology department to request the study. Assessment & Plan (02/06/2019 9:08 AM EDT): She recently had parathyroidectomy which was the main etiology for her having osteopenia. She has a high FRAX score for fracture of 26% and normally we will treat with antiresorptive medications. However I do not think we need to do so because we removed the main etiology that was resulting in osteopenia. However she needs to continue on Citracal 1 tablet twice a day with food she cannot take it at the same time because it will not be absorbed. I suspect that she is getting 800 units of vitamin D with Citracal so I asked her to stop cholecalciferol 2000 units and take at thousand units instead and I put in an order for this. She needs a repeat DEXA scan by 06/21/2020 and I will order this study on the follow-up visit in 1 years time. Assessment & Plan (11/15/2018 8:49 AM EDT): As for osteopenia she should continue vitamin D supplementation. As she has a high FRAX score for fracture and normally we prescribe antiresorptive medications. However, the main etiology for osteopenia is primary hyperparathyroidism and I wonder if after the surgery she will even require the antiresorptive medication may be she will be good with calcium and vitamin D supplementation. I can discuss this with the patient further at a later time. Repeat DEXA scan is due for 06/21/2020. Assessment & Plan (10/04/2018 12:37 PM EDT): Recommend vitamin D supplementation and parathyroidectomy. Postsurgically she would benefit from calcium supplementation. Consider bisphosphonates at that point but she may not require it then. Assessment & Plan (07/04/2018 2:40 PM EST): The patient has osteopenia the fracture score for major osteoporotic fracture is elevated at 26%. She is currently not on any medications. She is also vitamin D deficient. I think that definitive therapy will be to do parathyroidectomy first before attempting any other medication. Currently I am prescribing vitamin D but that is mostly so I can see a change in serum calcium level. Encounters Date Type Department Care Team Description 12/31/2024 10:15 AM EDT Nurse Only [facility] [address] [place] [address] [place] [address] Alanna Stahl MD Other osteoporosis without current pathological fracture (Primary Dx) 12/31/2024 Orders Only [facility] [address] [place] [address] [place] [address] Sena Hope RN Other osteoporosis without current pathological fracture (Primary Dx) 12/29/2024 9:20 AM EDT - 12/29/2024 11:59 PM EDT Hospital Encounter [facility] [address] [place] [address] Meredith Albrecht DO Discharge Disposition: Home or Self Care 12/04/2024 Telephone [facility] [address] [address] Meredith Albrecht DO prolia coverage from Last 3 Months Immunizations Immunization Administration Dates Next Due COVID-19 (Pre-05/07) Sharmin Vaccine, [id number], P F 09/25/2020 Influenza High-Dose Trivalent Preservative Free IM 04/11/2021 Influenza Quadrivalent Preservative Free IM 04/15 Influenza, Unspecified Formulation 04/30/2019, Pneumococcal conjugate PCV13 02/12/2019 Td (adult),2 Lf Tetanus Toxoid, PF, Adsorbed 01/2007 Tdap 12/19/2013 Zoster recombinant 09/09/2019,05/27/2019 Family History Medical History Relation Comments Diabetes Brother 1 Nephrolithiasis Brother 1 Heart attack Brother 2 Diabetes Father Kidney disease Father No Known Problems Maternal Grandfather Nephrolithiasis Maternal Grandmother Nephrolithiasis Mother No Known Problems Paternal Grandfather No Known Problems Paternal Grandmother Relation Status Comments Brother 1 Alive Brother 2 Daughter 1 Alive Daughter 2 Alive Daughter 3 Alive Father Maternal Grandfather Maternal Grandmother Mother Paternal Grandfather Paternal Grandmother Social History Tobacco Use Types Packs/Day Years Used Date Smoking Tobacco: Never Smokeless Tobacco: Never Alcohol Use Standard Drinks/Week Comments No 0 (1 standard drink = 0.6 oz pur e alcohol) Child or Family Care Answer Date Record ed Do you have problems with on e of the following making it difficult for you to work, study, or receive health care? No 12/03/2021 Education Answer Date Recorded Are you interested in more education? Not on jennifer e 12/06/2023 Are you concerned about learning? Not on file 12/06/2023 No 12/06/2023 No 12/06/2023 Food Answer Date Recorded Within the past 6 months we worried whether our food would run out before we got money to buy more. Never True 12/03/2021 Within the past 6 months the food we bought just didn't last and we didn't have enough money to get more. Never True Residential Stability Answer Date Recor ded What is your housing situation today? I have samra sing 12/03/2021 How many times have you move d in the past 12 months? Zero (I did not move) 12/03/2021 Paying for Meds Answer Date Recorded Do you have trouble paying for medicines? No 12/03/2021 Paying Utility Bills Answer Date Record ed Do you have trouble paying your heating or elect ricity bill? No 12/03/2021 Transportation Answer Date Recorded Has the lack of transportati on kept you from medical appointments or from getting medications? No 12/03/2021 Unemployment Answer Date Recorded Are you currently unemployed or working on a part-time or temporary basis, and looking for work? No 12/03/2021 Digital Access Answer Date Recorded No 12/05/2022 No 12/05/2022 Reliable internet access at home? Not on file 12/05/2022 Device with a working camera? Not on file Comments No Sex and Gender Information Value Date Recorded Sex Assigned at Female 06/23/2020 1:11 PM EST Legal Sex Female 9:58 PM EDT Gender Identity Female 06/23/2020 1:11 PM EST Sexual Orientation Straight 06/23/2020 1: 11 PM EST Last Filed Vital Signs Vital Sign Reading Time Taken Comments Blood Pressure 134/76 12/31/2024 10:16 AM EDT Pulse 58 12/31/2024 10:16 AM EDT Temperature 36.3 C (97.4 F) 06/28/2023 9:08 AM EST Respiratory Rate - - Oxygen Saturation 98% 12/31/2024 10:16 AM EDT Inhaled Oxygen Concentration - - Weight 88.5 kg (195 lb) 07/01/2024 9:24 AM EST Height 152 cm (4' 11.84 ) 07/01/2024 9:24 AM EST Body Mass Index 38.28 07/01/2024 9:24 AM EST Plan of Treatment Upcoming Encounters Date Type Department Care Team (Late st Contact Info) Description 07/03/2025 10:30 AM EST Office Visit [facility] [address] [place] [address] [place] [address] Meredith Albrecht DO [address] [place] [phone] [email or web address] Health Maintenance Due Date Last Done Comments COLOGUARD 1998 COLONOSCOPY 1998 COLORECTAL CANCER SCREENING 1998 FIT TEST 1998 FOBT 1998 SIGMOIDOSCOPY 1998 VIRTUAL COLONOSCOPY 1998 RSV VACCINE (1 - Risk 60-74 years 1-dose series) 2013 DIABETIC EYE EXAM 11/22/2020 DEPRESSION SCREENING 12/03/2022 12/03/2021 MAMMOGRAM 12/15/2023 12/14/2021, 12/17/2017 URINE MICROALBUMIN/CREATININE RATIO 03/16/2024 03/16/2023, 12/09/2021 COVID-19 VACCINE ( season) 2024 03/13/2024, 04/03/2023, 05/08/2022, Additional history exists HEMOGLOBIN A1C 05/01/2025 10/30/2024, 11/2022, 10/16/2022, Additional history exists BLOOD PRESSURE 07/02/2025 12/31/2024 CREATININE LEVEL 12/29/2025 12/29/2024, , 06/27/2024, Additional history exists POTASSIUM LEVEL 12/29/2025 12/29/2024, 10/14, 06/27/2024, Additional history exists Adult Td,Tdap Booster 10/23/2033 10/24/2023 , 12/19/2013, 11/19/2006 ZOSTER VACCINES Completed 09/09/2019, 05/27/2019 HEPATITIS C SCREENING Completed 12/09/2021, 022 PNEUMOCOCCAL VACCINES (50+ years) Completed 04/11/2023, 02/12/2019 OSTEOPOROSIS SCREENING INITIAL (ONE-TIME) Completed 06/27/2024, 06/26/2022, 06/24/2020, Additional history exists SMOKING STATUS SCREENING (Once After 26 Yrs) Completed 10/31/2024 HEPATITIS A VACCINES Aged Out No long er eligible based on patient's age to complete this topic HIB VACCINES Aged Out No longer eligi ble based on patient's age to complete this topic MENINGOCOCCAL VACCINES (ACWY) Aged Out No longer eligible based on patient's age to complete this topic MENINGOCOCCAL VACCINES (B) Aged Out N o longer eligible based on patient's age to complete this topic Medical Devices Not on file Procedures Procedure Name Priority Date/Time Associated Diagnosis Comments RENAL PANEL Routine 12/29/2024 9:21 AM EDT Other osteoporosis without current pathological fracture HEMOGLOBIN A1C Routine 10/30/2024 7:47 AM EDT Unspecified general medical examination Type 2 diabetes mellitus without complication, without long-term current use of insulin Essential hypertension, malignant Chronic renal disease, stage II BD DXA AXIAL (SPINE) WITH HIP Routine 06/27/2024 9:36 AM EST Other osteoporosis without current pathological fracture BI MAMMOGRAM SCREENING WITH TOMOSYNTHESIS WITH CAD (BILATERAL) Routine 12/14/2021 8:20 AM EDT 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 Mild persistent asthma without complication Class 2 severe obesity with body mass index (BMI) of 35 to 39.9 with serious comorbidity Type 2 diabetes mellitus without complication, without long-term current use of insulin Screening mammogram for breast cancer MICROALBUMIN/CREATINI NE RATIO, RANDOM URINE Routine 12/09/2021 8:05 AM EDT 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 Mild persistent asthma without complication Class 2 severe obesity with body mass index (BMI) of 35 to 39.9 with serious comorbidity Type 2 diabetes mellitus without complication, without long-term current use of insulin HEPATITIS C ANTIBODY, QUALITATIVE Routine 12/09/2021 8:05 AM EDT Need for hepatitis C screening test from Last 3 Months or Most Recently Relevant to Health Maintenance Results * (ABNORMAL) Renal panel (12/29/2024 9:21 AM EDT) SODIUM 139 133 - 146 mmol/L [facility] POTASSIUM 4.9 3.3 - 5.1 mmol/L [facility] CHLORIDE 105 96 - 108 mmol/L [facility] CO2 23 21 - 35 mmol/L [facility] GLUCOSE 182(H) 70 - 99 mg/dL [facility] BUN 33(H) 6 - 19 mg/dL [facility] CREATININE 1.80(H) 0.5 - 1.5 mg/dL [facility] CALCIUM 9.9 8.4 - 10.3 mg/dL [facility] PHOSPHORUS 3.9 2.7 - 4.5 mg/dL [facility] ALBUMIN 4.1 3.9 - 4.8 g/dL [facility] EGFR 30(L) >59 mL/min/1.7 3m2 [facility] Comment:Estimated glomerular filtration rate calculated using the CKD-EPI refit equation. ANION GAP 16 10 - 20 mmol/L [facility] Blood 12/29/2024 9:21 AM EDT 12/29/2024 9:25 AM EDT us Meredith Albrecht DO LAB BLOOD ORDERABLES Final Resul t [address] [address] * (ABNORMAL) Hemoglobin A1c (10/30/2024 7:47 AM EDT) HEMOGLOBIN A1C 6.9(H) 4.3 - 5.8 % [facility] Blood 10/30/2024 7:47 AM EDT 10/30/2024 7:53 AM EDT us Julia Garrido NP LAB BLOOD ORDERABLES Final Result Performing Organization Address City/[facility]/ZIP Co de Phone Number [address] [address] * BD DXA AXIAL (SPINE) WITH HIP (06/27/2024 9:36 AM EST) Anatomical Region Laterality Modality Bone Density Bone Density 06/27/2024 9:34 AM EST Impressions 06/27/2024 9:37 AM EST Interpretation: Osteopenia. Narrative 06/27/2024 9:37 AM EST Referred By: MEREDITH ALBRECHT Indications: Osteoporosis Scanner: [employer] A with serial# of [id number] located at [facility] Bone Density Scan (DXA) 06/27/24 Details of prior DXA scans are available by clicking View Image BMD T- Z- Skeletal Site gm/cm2 score score BMD Change Since Prior Scan ------ ----- ----- PA Spine (L1 L4) 0.987 -0.50 1.70 0.027 (2.8%)* since 06/26/2022 Total Hip (Left) 0.877 -0.50 1.00 0.053 (6.4%)* since 06/26/2022 Femoral Neck (Left) 0.578 -2.40 -0.60 0.027 (stable) since 06/26/2022 ------ ----- ----- * Denotes significant change when >= 0.022 g/cm2 for the spine, 0.027 g/cm2 for the total hip, 0.029 g/cm2 for the femoral neck. Interpretation: Osteopenia. Technical Quality: Imaging of all sites was of adequate quality.Because only two vertebrae are measurable, interpret PA spine results with caution; serial changes may be more variable than usual. FRAX: Based on FRAX(r) 3.6 ([place] White female), this patient's likelihood of hip fracture is 5.8% and major osteoporotic fracture is 19.8% over the next 10 years. The patient reported the following risks of fracture on a questionnaire: parental history of hip fracture. Additional Information: -World Health Organization criteria classify adults based on lowest T-score at PA spine, hip or forearm: Normal (T-score >= -1.0), Osteopenia (T-score between -1 and -2.5), or Osteoporosis (T-score <= -2.5). At [facility], T-scores are compared to peak bone density of a young white gender matched reference population. - For premenopausal women and men under the age of 50, Z-scores (comparison to age, gender, and ethnicity matched reference population) are used: Above expected range for age (Z-score >= 2.0), Within expected range of age (Z-score 1.9 to -1.9), or Below expected range for age (Z-score <= -2.0). - The Bone Health and Osteoporosis Foundation recommends that treatment be considered in men aged more than 50 years and in postmenopausal women with ANY of the following: Prior hip or vertebral fractures; T-score of <= -2.5 at the PA spine or hip; or 10 year fracture probability by FRAX of >= 3% for the hip or >= 20% for major osteoporotic fracture. - The FRAX algorithm (https://www.humberto.ac.uk/FRAX/tool.aspx) is designed to predict 10-year fracture risk in treatment-naive adults between the ages of 40 and 90. It is not intended to be used in those receiving pharmacologic osteoporosis treatment. - Including race/ethnicity in the generation of T- or Z-scores or in the FRAX calculation is complicated, and currently undergoing active review to ensure that we can give patients the best information on their risk of fracture. -Some prior studies may not be compatible with our comparison software. -Click on View Full Report to see subsequent pages with images and prior bone density results. Reviewed By: Ike Basurto MD on 06/27/2024 09:37:37 Procedure Note Ike Basurto MD - 06/27/2024 Referred By: MEREDITH ALBRECHT Indications: Osteoporosis Scanner: [employer] A with serial# of [id number] located at [facility] Bone Density Scan (DXA) 06/27/24 Details of prior DXA scans are available by clicking View Image BMD T- Z- Skeletal Site gm/cm2 score score BMD Change Since Prior Scan ------ ----- PA Spine (L1 L4) 0.987 -0.50 1.70 0.027 (2.8%)* since06/26/2022 Total Hip (Left) 0.877 -0.50 1.00 0.053 (6.4%)* since06/26/2022 Femoral Neck (Left) 0.578 -2.40 -0.60 0.027 (stable) since06/26/2022 ------ ----- * Denotes significant change when >= 0.022 g/cm2 for the spine, 0.027g/cm2 for the total hip, 0.029 g/cm2 for the femoral neck. Interpretation: Osteopenia. Technical Quality: Imaging of all sites was of adequate quality.Becauseonly two vertebrae are measurable, interpret PA spine results with caution; serial changes may be more variable than usual. FRAX: Based on FRAX(r) 3.6 ([place] White female), this patient's likelihoodof hip fracture is 5.8% and major osteoporotic fracture is 19.8% over thenext 10 years. The patient reported the following risks of fracture on a questionnaire: parental history of hip fracture. Additional Information: -World Health Organization criteria classify adults based on lowestT-score at PA spine, hip or forearm: Normal (T-score >= -1.0), Osteopenia (T-score between -1 and -2.5), or Osteoporosis (T-score <= -2.5). At [facility], T-scores are compared to peak bone density of a young white gender matched reference population. - For premenopausal women and men under the age of 50, Z-scores(comparison to age, gender, and ethnicity matched reference population) are used:Above expected range for age (Z-score >= 2.0), Within expected range of age (Z-score 1.9 to -1.9), or Below expected range for age (Z-score <= -2.0). - The Bone Health and Osteoporosis Foundation recommends that treatment be considered in men aged more than 50 years and in postmenopausal women with ANY of the following: Prior hip or vertebral fractures; T-score of <= -2.5 at the PA spine or hip; or 10 year fracture probability by FRAX of >= 3%for the hip or >= 20% for major osteoporotic fracture. - The FRAX algorithm (https://www.humberto.ac.uk/FRAX/tool.aspx) is designed to predict 10-year fracture risk in treatment-naive adultsbetween the ages of 40 and 90. It is not intended to be used in those receiving pharmacologic osteoporosis treatment. - Including race/ethnicity in the generation of T- or Z-scores or in the FRAX calculation is complicated, and currently undergoing active review to ensure that we can give patients the best information on their risk of fracture. -Some prior studies may not be compatible with our comparison software. -Click on View Full Report to see subsequent pages with images and prior bone density results. Reviewed By: Ike Basurto MD on 06/27/2024 09:37:37 IMPRESSION: Interpretation: Osteopenia. us Meredith Albrecht DO IMG BD BONE DENSITY DEXA Final R esult * BI MAMMOGRAM SCREENING WITH TOMOSYNTHESIS WITH CAD (BILATERAL) (12/14/2021 8:20 AM EDT) Anatomical Region Laterality Modality Breast Left, Breast Right, Breast Bilateral Bila teral Mammography 12/14/2021 9:06 AM EDT Impressions 12/14/2021 9:10 AM EDT No findings suspicious for malignancy. In the absence of a worrisome palpable abnormality, annual screening mammography is recommended. BI-RADS CATEGORY: 2 - Benign finding. DENSITY: There are scattered fibroglandular densities. Narrative 12/14/2021 9:10 AM EDT COMPARISON: 10/17/2011 through 12/17/2017. Bilateral 3-D tomosynthesis with 2-D reconstructions in the CC and MLO projection. Computer-aided detection system also utilized. No new mass, asymmetry, architectural distortion or suspicious calcifications have become apparent on either side. Chronic circumscribed mass in the central left breast unchanged for many years. Procedure Note Camilo Sagastume MD - 12/14/2021 COMPARISON: 10/17/2011 through 12/17/2017. Bilateral 3-D tomosynthesis with 2-D reconstructions in the CC and MLOprojection. Computer-aided detection system also utilized. No new mass, asymmetry, architectural distortion or suspiciouscalcifications have become apparent on either side. Chronic circumscribed mass in the central left breast unchanged for manyyears. IMPRESSION: No findings suspicious for malignancy. In the absence of a worrisomepalpable abnormality, annual screening mammography is recommended. BI-RADS CATEGORY: 2 - Benign finding. DENSITY: There are scattered fibroglandular densities. Anne Mayer MD IMG MG EXAMS Fanta l Result * Hepatitis C antibody, qualitative (12/09/2021 8:05 AM EDT) HCV NON-REACTIV E NON-REACTI VE [facility] Blood 12/09/2021 8:05 AM EDT 12/09/2021 8:11 AM EDT Anne Mayer MD LAB BLOOD ORDERABLES Final Result Performing Organization Address City/[facility] Co de Phone Number [address] [address] * Microalbumin/creatinine ratio, random urine (12/09/2021 8:05 AM EDT) URINE MICROALBUMIN 1.9 0 - 2.3 mg/dL [facility] URINE CREATININE 135 mg/dL [facility] MICROALB/CRE RATIO 14.1 0 - 20 mg/g Cre [facility] Urine (Urine) 12/09/2021 8:0 5 AM EDT 12/09/2021 8:11 AM EDT Anne Mayer MD URINE ORDERABLES Fin al Result Performing Organization Address City/[facility] Co de Phone Number [address] [phone] from Last 3 Months or Most Recently Relevant to Health Maintenance Insurance MEDICARE PART A & B Member Subscriber Plan / Payer (Ef fective 2018-Present) Name:Anneliese Woods Member ID:[id number] Relation to Subscriber:Self Name:Anneliese Woods Subscriber ID:[id number] Payer ID:[id number] Group ID:Not on file Type:Medicare Address: [employer] [address] [place] [address] FOR LIFE MEDICARE SUPPLEMENT [facility] Address: [address] [address] MEDICARE PART A & B Member Subscriber Plan / Payer (Ef fective 2018-Present) Name:Anneliese Woods Member ID:[id number] Relation to Subscriber:Self Name:Anneliese Woods Subscriber ID:[id number] Payer ID:[id number] Group ID:Not on file Type:Medicare Address: [employer] [address] [place] [address] FOR LIFE MEDICARE SUPPLEMENT MEDICARE PART A & B Member Subscriber Plan / Payer ( fective 2018-Present) Name:Anneliese Woods Member ID:[id number] Relation to Subscriber:Self Name:Anneliese Woods Subscriber ID:[id number] Payer ID:[id number] Group ID:Not on file Type:Medicare Address: [employer] [address] [place] [address] [email or web address] MEDICARE SUPP[facility]MENT [facility] Address: [address] [address] MEDICARE PART A & B Member Subscriber Plan / Payer ( fective 2018-Present) Name:Anneliese Woods Member ID:[id number] Relation to Subscriber:Self Name:Anneliese Woods Subscriber ID:[id number] Payer ID:[id number] Group ID:Not on file Type:Medicare Address: [employer] [address] [place] [address] [email or web address] MEDICARE SUPPLEMENT MEDICARE PART A & B Member Subscriber Plan / Payer (Ef fective 2018-Present) Name:Anneliese Woods Member ID:[id number] Relation to Subscriber:Self Name:Anneliese Woods Subscriber ID:[id number] Payer ID:[id number] Group ID:Not on file Type:Medicare Address: [employer] [address] [place], [place] [phone] [email or web address] MEDICARE [facility]PP[facility] Address: [address] [address] MEDICARE PART A & B Member Subscriber Plan / Payer (Ef fective 2018-Present) Name:Anneliese Woods Member ID:[id number] Relation to Subscriber:Self Name:Anneliese Woods Subscriber ID:[id number] Payer ID:[id number] Group ID:Not on file Type:Medicare Address: [employer] [address] [place] [phone] [email or web address] MEDICARE [facility] Address: [address] [address] MEDICARE PART A & B Member Subscriber Plan / Payer (Ef fective 2018-Present) Name:Anneliese Woods Member ID:[id number] Relation to Subscriber:Self Name:Anneliese Woods Subscriber ID:[id number] Payer ID:[id number] Group ID:Not on file Type:Medicare Address: [employer] [address] [place] [phone] [facility] MEDICARE SUPP[facility]MENT [facility] Address: [address] [address] MEDICARE PART A & B Member Subscriber Plan / Payer (Ef fective 2018-Present) Name:Anneliese Woods Member ID:[id number] Relation to Subscriber:Self Name:Anneliese Woods Subscriber ID:[id number] Payer ID:[id number] Group ID:Not on file Type:Medicare Address: [employer] [address] [place] [address] FOR LIFE MEDICARE SUPPLEMENT MEDICARE PART A & B Member Subscriber Plan / Payer ( fective 2018-Present) Name:Anneliese Woods Member ID:[id number] Relation to Subscriber:Self Name:Anneliese Woods Subscriber ID:[id number] Payer ID:[id number] Group ID:Not on file Type:Medicare Address: [employer] [address] [place] [phone] FOR LIFE MEDICARE SUPPLEMENT Care Teams Postal Worker Relationship Specialty Start Date End Date Julia Garrido NP [address] [place] [address] PCP - General Nurse Practitioner 04/19/23 Additional Source Comments The information contained in this document represents components of the legal health record. It is not the complete legal health record.[facility]
--- OUTSIDE RECORDS SUMMARY | 2025-02-04 14:59 | XMS_ITS | Clinical Summary ---
Author Organization [facility] Address [address] [place] [address] Phone Care Team Providers Care Integrated Campaign Manager Name Role Phone Julia Garrido [employer]-C Primary Care Provider + Allergies No known [...] that she does plan on traveling to [place] and since this medication is administered every [...] PCV20, or PCV21) 04/09/2019 02/12/2019 Influenza Vaccine (#1) 2025 1, 04/29/2020, 04/30/2019, Additional history exists Hepatitis B Vaccine Aged Out No longe r eligible based on patient's age to complete [place] [address] Medicare [facility] [place] [address] Medicare [facility] Care Teams Integrated Campaign Manager Relationship Specialty Start Date End Date Julia Garrido NP-C [address], [address] [place] [address] PCP - General Nurse Practitioner 10/24/22
== END 2025-02-04 14:35 | disposition home or self-care (01) ==
LOC: HO.HKA 14:17
PROVIDERS: PCP Nurse Practitioner Primary Care; Visit Provider Internal Medicine Nephrology
DX: I10 Essential (primary) hypertension (principal); N18.31 Chronic kidney disease, stage 3a
CPT/HCPCS: 99214

== ENCOUNTER → 2025-02-04 14:16 | Outpatient (BNVA) | payer MEDICARE, OTHER, SELFPAY | PROVIDERS: PCP Nurse Practitioner Primary Care; Visit Provider Internal Medicine Nephrology | DX: E11.22 Type 2 diabetes mellitus with diabetic chronic kidney disease (principal); I12.9 Hypertensive chronic kidney disease with stage 1 through stage 4 chronic kidney disease, or unspecified chronic kidney disease; N18.31 Chronic kidney disease, stage 3a | CPT/HCPCS: 99212 ==

== ENCOUNTER 2025-03-26 07:54 | Outpatient (REF) | payer MEDICARE, OTHER, SELFPAY ==
--- OUTSIDE RECORDS SUMMARY | 2025-03-26 08:00 | XMS_ITS | Encounter Summary ---
Author Organization [facility] Address [address] [address] Phone Care Team Providers Care Electrotype Caster Name Role Phone Earl Lee MD Primary Care Provider [phone] Anne Mayer MD Primary Care Provid er Pcp, Unknown Primary Care Provider Julia Bennett NP Primary Care Provid er Encounter Details Date Type Department Care Team (Latest Contact Info) Description 06/23/2021 Transcribe Orders Virtual Department [address] [place] [address] Earl Lee MD [address] [facility] [address] [place] [address] [email or web address] Left knee pain, unspecified chronicity (Primary Dx) Social History Tobacco Use Types Packs/Day Years Used Date Smoking Tobacco: Never Smokeless Tobacco: Never Alcohol Use Standard Drinks/Week Comments No 0 (1 standard drink = 0.6 oz pur e alcohol) Comments No Sex and Gender Information Value Date Recorded Sex Assigned at Female 06/23/2020 1:11 PM EST Legal Sex Female 9:58 PM EDT Gender Identity Female 06/23/2020 1:11 PM EST Sexual Orientation Straight 06/23/2020 1: 11 PM EST documented as of this encounter Plan of Treatment Upcoming Encounters Date Type Department Care Team ( Contact Info) Description 07/03/2025 10:30 AM EST Office Visit [facility] [address] [place] [address] Ambrocio SilverioDO [address] [place] [address] [email or web address] documented as of this encounter Results * XR KNEE 4 OR MORE VIEWS (LEFT) (07/29/2021 10:11 AM EST) Anatomical Region Laterality Modality Knee Left Computed Radiogr aphy 07/29/2021 10:1 7 AM EST Impressions 07/29/2021 10:21 AM EST Fairly severe degenerative changes medially and at the patellofemoral compartment. Less severe degenerative changes at the lateral compartment. Narrative 07/29/2021 10:21 AM EST HISTORY: Chronic left knee pain. COMPARISON: Left knee x-ray 07/13/2014. VIEWS: AP standing view the knees and 3 separate views of the left knee. FINDINGS: Progressive narrowing of the medial joint space since 2013. This has become moderate-severe. Moderate associated marginal spurring probable mild widening of the lateral joint space. Mild-moderate marginal spurring laterally. Fairly severe marginal spurring with joint space loss at the patellofemoral compartment, significant progression from 2013. Tunnel view is less than ideal. Suggestion of mild narrowing of the intercondylar notch. No fractures, subluxations or dislocations. Probable joint effusion. Procedure Note Antonio Valenzuela MD - 07/29/2021 HISTORY: Chronic left knee pain. COMPARISON: Left knee x-ray 07/13/2014. VIEWS: AP standing view the knees and 3 separate views of the leftknee. FINDINGS: Progressive narrowing of the medial joint space since 2013. This hasbecome moderate-severe. Moderate associated marginal spurring probablemild widening of the lateral joint space. Mild-moderate marginal spurringlaterally. Fairly severe marginal spurring with joint space loss at thepatellofemoral compartment, significant progression from 2013. Tunnel viewis less than ideal. Suggestion of mild narrowing of the intercondylarnotch. No fractures, subluxations or dislocations. Probable joint effusion. IMPRESSION: Fairly severe degenerative changes medially and at the patellofemoralcompartment. Less severe degenerative changes at the lateralcompartment. Earl Lee MD IMG XR LOWER EXTREMITY Final Re sult documented in this encounter Visit Diagnoses Diagnosis Left knee pain, unspecified chronicity- Primary Left knee pain, unspecified chronicity documented in this encounter Care Teams Electrotype Caster Relationship Specialty Start Date End Date Earl Lee MD [address] [place] [address] [address] [place] [address] [email or web address] PCP - General Internal Medicine 07/04/1811/14 Anne Mayer MD [address] [place] [address] [email or web address] PCP - General Family Medicine 12/06/21 1 08/26/21 Pcp, Unknown PCP - General 06/26/22 04/18/23 Julia Garrido NP [address] [place] [address] PCP - General Nurse Practitioner 04/19/23 documented as of this encounter Additional Source Comments The information contained in this document represents components of the legal health record. It is not the complete legal health record.[facility]
--- OUTSIDE RECORDS SUMMARY | 2025-03-26 08:00 | XMS_ITS | Encounter Summary ---
Author Organization [facility] Address [address] [facility] [address] [place] [address] Phone Care Team Providers Care Production Recorder Name Role Phone Julia Garrido NP Primary Care Provid er Encounter Details Date Type Department Care Team (Latest Contact Info) Description 06/25/2023 Transcribe Orders [facility] Laboratory [address] [facility] [address] [place] [address] Silverio Albrecht, DO [address] [place] [address] [email or web address] Other osteoporosis without current pathological fracture (Primary Dx) Social History Tobacco Use Types [...] Answer Date Recorded Are you interested in help w ith more adult education (for example, completing high school, GED, job training, learning the Russian language, technical skills, or developing parenting skills)? No 12/03/2021 Food Answer Date Recorded Within the past [...] 10:30 AM EST Office Visit [facility] [address] [place] [address] Silverio Albrecht DO [address] [place] [address] [email or web address] documented as of this encounter Results * Collagen type 1b-telopeptide, blood (06/25/2023 8:21 AM EST) Collagen CTx 643 pg/mL [facility] LAB MED/PATH SUPERIOR Comment: (NOTE) REFERENCE VALUE 148-967 (18-29 y) 150-635 (30-39 y) 131-670 (40-49 y) 183-1060 (50-59 y) 171-970 (60-69 y) 152-858 (>70 y) 136-689 (Premenopausal) [phone] (Postmenopausal) Flagging is based on the age-specific reference interval and not menopausal status. Blood 06/25/2023 8:21 AM EST 06/25/2023 8:26 AM EST us Silverio Albrecht DO LAB BLOOD ORDERABLES Final Resul t [facility] [address] [place] [address] documented in this encounter Visit Diagnoses Diagnosis Other osteoporosis without current pathological fracture- Primary documented in this encounter Additional Health Concerns Assessment Noted Time PHQ-2 Depression Total Score: 0 12/04/19 22 7:00 PM EDT documented as of this encounter Care Teams Production Recorder Relationship Specialty Start Date End Date Julia Garrido NP [address] [place] [address] PCP - General Nurse Practitioner 04/19/23 documented as of this encounter Additional Source Comments The information contained in this document represents components of the legal health record. It is not the complete legal health record.[facility]
--- OUTSIDE RECORDS SUMMARY | 2025-03-26 08:00 | XMS_ITS | Encounter Summary ---
Author Organization [facility] Address [address] [place] [address] Phone Care Team Providers Care Labor Expediter Name Role Phone Julia Garrido NP Primary Care Provid er Encounter Details Date Type Department Care Team (Latest Contact Info) Description 12/27/2023 Transcribe Orders [facility] Laboratory 10 [facility] [address] [place] [address] Silverio Albrecht, DO [address] [place] [address] [email or web address] Other osteoporosis without current pathological fracture (Primary Dx); Osteopenia of right hip Social History Tobacco Use Types Packs/Day Years [...] your housing situation today? I have samra vogel 12/03/2021 How many times have you move [...] 10:30 AM EST Office Visit [facility] [address] [place] [address] [place] [address] Silverio Albrecht DO [address] [place] [address] [email or web address] documented as of this encounter Results * Collagen type 1b-telopeptide, blood (12/27/2023 8:58 AM EDT) Collagen CTx 471 pg/mL [facility] PT LAB MED/PATH SUPERIOR Comment: (NOTE) REFERENCE VALUE 148-967 (18-29 y) 150-635 (30-39 y) 131-670 (40-49 y) 183-1060 (50-59 y) 171-970 (60-69 y) 152-858 (>70 y) 136-689 (Premenopausal) [phone] (Postmenopausal) Flagging is based on the age-specific reference interval and not menopausal status. Blood 12/27/2023 8:58 AM EDT 12/27/2023 9:05 AM EDT Silverio Albrecht DO LAB BLOOD ORDERABLES Final Resul t [facility] [address] [place] [address] documented in this encounter Visit Diagnoses Diagnosis Other osteoporosis without current pathological fracture- Primary Osteopenia of right hip documented in this encounter Additional Health Concerns Assessment Noted Time PHQ-2 Depression Total Score: 0 12/04/19 22 7:00 PM EDT documented as of this encounter Care Teams Labor Expediter Relationship Specialty Start Date End Date Julia Garrido NP [address] [place] [address] PCP - General Nurse Practitioner 04/19/23 documented as of this encounter Additional Source Comments The information contained in this document represents components of the legal health record. It is not the complete legal health record.[facility]
--- OUTSIDE RECORDS SUMMARY | 2025-03-26 08:00 | XMS_ITS | Clinical Summary ---
Author Organization [facility] Address [address] [place] [phone] Phone Care Team Providers Care Duralumin Metalworker Name Role Phone Julia Garrido NP Primary [...] I will refer her for parathyroidectomy at [facility] with Dr. David Engel. Assessment & [...] 10:15 AM EDT Nurse Only [facility] [address] [place] [address] [place] [address] Alanna Stahl MD Other osteoporosis without current pathological fracture (Primary Dx) 12/31/2024 Orders Only [facility] [address] [place] [address] [place] [address] Sena Hope RN Other osteoporosis without current pathological fracture (Primary Dx) 12/29/2024 9:20 AM EDT - 12/29/2024 11:59 PM EDT Hospital Encounter [facility] [address] 2nd [place] [address] Meredith Albrecht DO Discharge Disposition: Home or Self Care from Last 3 Months Immunizations Immunization Administration [...] 10:30 AM EST Office Visit [facility] [address] [place] [address] Meredith Albrecht DO [address] [place] [address] [email or web address] Health Maintenance Due Date Last Done Comments COLOGUARD 1998 COLONOSCOPY 1998 COLORECTAL CANCER SCREENING 1998 FIT TEST 1998 FOBT 1998 SIGMOIDOSCOPY 1998 VIRTUAL COLONOSCOPY 1998 RSV VACCINE (1 - Risk 60-74 years 1-dose series) 2013 DIABETIC EYE EXAM 11/22/2020 DEPRESSION SCREENING 12/03/2022 12/03/2021 MAMMOGRAM 12/15/2023 12/14/2021, 12/17/2017 URINE MICROALBUMIN/CREATININE RATIO 03/16/2024 03/16/2023, 12/09/2021 INFLUENZA VACCINE (#1) 2025 , 04/03/2023, 05/05/2022, Additional history exists COVID-19 VACCINE ( season) 2025 03/13/2024, 04/03/2023, 05/08/2022, Additional history exists HEMOGLOBIN [...] EDT) SODIUM 139 133 - 146 mmol/L [facility] POTASSIUM 4.9 3.3 - 5.1 mmol/L [facility] CHLORIDE 105 96 - 108 mmol/L [facility] CO2 23 21 - 35 mmol/L [facility] GLUCOSE 182(H) 70 - 99 mg/dL [facility] BUN 33(H) 6 - 19 mg/dL [facility] CREATININE 1.80(H) 0.5 - 1.5 mg/dL [facility] CALCIUM 9.9 8.4 - 10.3 mg/dL [facility] PHOSPHORUS 3.9 2.7 - 4.5 mg/dL [facility] ALBUMIN 4.1 3.9 - 4.8 g/dL [facility] EGFR 30(L) >59 mL/min/1.7 3m2 [facility] Comment:Estimated glomerular filtration rate calculated using the CKD-EPI refit equation. ANION GAP 16 10 - 20 mmol/L [facility] Blood 12/29/2024 9:21 AM EDT 12/29/2024 9:25 AM EDT us Meredith Albrecht DO LAB BLOOD ORDERABLES Final Resul t [address] [address] * (ABNORMAL) Hemoglobin A1c (10/30/2024 7:47 AM EDT) HEMOGLOBIN A1C 6.9(H) 4.3 - 5.8 % [facility] Blood 10/30/2024 7:47 AM EDT 10/30/2024 7:53 AM EDT us Julia Garrido NP LAB BLOOD ORDERABLES Final Result Performing Organization Address City/[facility]/ZIP Co de Phone Number [address] [address] * BD DXA AXIAL (SPINE) WITH HIP (06/27/2024 9:36 AM EST) Anatomical Region Laterality Modality Bone Density Bone Density 06/27/2024 9:34 AM EST Impressions 06/27/2024 9:37 AM EST Interpretation: Osteopenia. Narrative 06/27/2024 9:37 AM EST Referred By: MEREDITH ALBRECHT Indications: Osteoporosis Scanner: Mdundo A with serial# of [id number] located at [facility] Bone Density Scan (DXA) 06/27/24 Details of [...] -2.5), or Osteoporosis (T-score <= -2.5). At [facility], T-scores are compared to peak bone density [...] Referred By: MEREDITH ALBRECHT Indications: Osteoporosis Scanner: HoloLumenpulse A with serial# of [id number] located at [facility] Bone Density Scan (DXA) 06/27/24 Details of [...] -2.5), or Osteoporosis (T-score <= -2.5). At [facility], T-scores are compared to peak bone density [...] MD on 06/27/2024 09:37:37 IMPRESSION: Interpretation: Osteopenia. Meredith Albrecht DO IMG BD BONE DENSITY [...] AM EDT) HCV NON-REACTIV E NON-REACTI VE [facility] Blood 12/09/2021 8:05 AM EDT 12/09/2021 8:11 AM EDT Anne Mayer MD LAB BLOOD ORDERABLES Final Result Performing Organization Address City/[facility] Co de Phone Number [address] [address] * Microalbumin/creatinine ratio, random urine (12/09/2021 8:05 AM EDT) URINE MICROALBUMIN 1.9 0 - 2.3 mg/dL [facility] URINE CREATININE 135 mg/dL [facility] MICROALB/CRE RATIO 14.1 0 - 20 mg/g Cre [facility] Urine (Urine) 12/09/2021 8:0 5 AM EDT 12/09/2021 8:11 AM EDT Anne Mayer MD URINE ORDERABLES Fin al Result Performing Organization Address City/[facility]/ZIP Co de Phone Number [address] [address] from Last 3 Months or Most Recently Relevant to Health Maintenance Insurance MEDICARE PART A & B FOR LIFE MEDICARE SUPPLEMENT [facility] Address: [address] [address] MEDICARE PART A & B FOR [employer] MEDICARE SUPP[place]MENT [facility] Address: [address] [address] MEDICARE PART A & B [email or web address] MEDICARE SUPPLEMENT [facility] Address: [address] [address] MEDICARE PART A & B [email or web address] MEDICARE SUPPLEMENT MEDICARE PART A & B [email or web address] MEDICARE SUPPLEMENT [facility] Address: [address] [address] MEDICARE PART A & B [email or web address] MEDICARE SUPP[place]MENT [facility] Address: [address] [address] MEDICARE PART A & B [facility] MEDICARE SUPPLEMENT [facility] Address: [address] [address] MEDICARE PART A & B FOR LIFE MEDICARE SUPPLEMENT MEDICARE PART A & B FOR LIFE MEDICARE SUPPLEMENT Care Teams Duralumin Metalworker Relationship Specialty Start Date End Date Julia Garrido NP [address] [place] [address] PCP - General Nurse Practitioner 04/19/23 Additional Source Comments The information contained in this document represents components of the legal health record. It is not the complete legal health record.[facility]
--- OUTSIDE RECORDS SUMMARY | 2025-03-26 08:00 | XMS_ITS | Encounter Summary ---
Author Organization [facility] Address [address] [address] Phone Care Team Providers Care Metallographic Technician Name Role Phone Earl Lee MD Primary Care Provider [phone] Anne Mayer MD Primary Care Provid er Pcp, Unknown Primary Care Provider Julia Bennett NP Primary Care Provid er Encounter Details Date Type Department Care Team (Latest Contact Info) Description 02/28/2019 Transcribe Orders [facility] [address] [place] [address] Earl Lee MD [address] [place] [address] [id number] [email or web address] High thyroid hormone level (Primary Dx); Anemia, unspecified type Social History Tobacco Use Types Packs/Day Years [...] AM EST Office Visit [facility] [address] [place] [address] Silverio Albrecht, DO [address] [place] [address] [email or web address] documented as of this encounter Results * Vitamin B12 (02/28/2019 7:33 AM EDT) VITAMIN B12 476 232 - 1,245 pg/mL [facility] Blood 02/28/2019 7:33 AM EDT 02/28/2019 7:47 AM EDT Earl Lee MD LAB BLOOD ORDERABLES Final Resu lt Performing Organization Address [facility]/ZIP Co de Phone Number [address] [address] * TSH (02/28/2019 7:33 AM EDT) TSH 1.01 0.27 - 4.20 uIU/mL [facility] Blood 02/28/2019 7:33 AM EDT 02/28/2019 7:47 AM EDT Earl Lee MD LAB BLOOD ORDERABLES Final Resu lt Performing Organization Address [facility]/ZIP Co de Phone Number [address] [address] * Free T4 (02/28/2019 7:33 AM EDT) FREE T4 1.1 0.9 - 1.7 ng/dL [facility] Blood 02/28/2019 7:33 AM EDT 02/28/2019 7:47 AM EDT Earl Lee MD LAB BLOOD ORDERABLES Final Resu lt Performing Organization Address [facility] Co de Phone Number [address] [address] * Iron and iron binding capacity (02/28/2019 7:33 AM EDT) IRON 62 30 - 160 ug/dL [facility] IRON BINDING CAPACITY 300 228 - 428 ug/dL [facility] TRANSFERRIN SATURAT. 21 15 - 50 % [facility] Blood 02/28/2019 7:33 AM EDT 02/28/2019 7:47 AM EDT Earl Lee MD LAB BLOOD ORDERABLES Final Resu lt Performing Organization Address [facility]/ZIP Co de Phone Number [address] [address] * Ferritin (02/28/2019 7:33 AM EDT) FERRITIN 69 13 - 150 ug/L [facility] Blood 02/28/2019 7:33 AM EDT 02/28/2019 7:47 AM EDT Earl Lee MD LAB BLOOD ORDERABLES Final Resu lt Performing Organization Address [facility] Co de Phone Number [address] [address] * Folate (02/28/2019 7:33 AM EDT) FOLIC ACID 13.3 4.2 - 19.9 ng/mL [facility] Blood 02/28/2019 7:33 AM EDT 02/28/2019 7:47 AM EDT Earl Lee MD LAB BLOOD ORDERABLES Final Resu lt Performing Organization Address [facility] Co de Phone Number [address] [address] * (ABNORMAL) CBC and differential (02/28/2019 7:33 AM EDT) WBC 6.89 3.40 - 11.20 K/uL [facility] RBC 3.72(L) 3.80 - 4.80 M/uL [facility] HGB 11.9(L) 12.0 - 15.0 g/dL [facility] HCT 36.2 36.0 - 46.0 % [facility] PLT 205 130 - 400 K/uL [facility] MCV 97.3 79.0 - 98.0 fL [facility] MCH 32.0 27.0 - 34.8 pg [facility] MCHC 32.9 31.5 - 36.0 g/dL [facility] RDW 13.8 10.8 - 14.6 % [facility] MPV 10.7 9.4 - 12.4 fl [facility] NRBC 0.00 0.00 /100 WBCs [facility] ABSOLUTE NRBC 0.00 0.00 K/uL [facility] DIFF METHOD Auto [facility] NEUTS 65.2 45.30 - 77.70 % [facility] LYMPHS 21.3 12.30 - 39.70 % [facility] MONOS 7.8 4.10 - 12.80 % [facility] EOS 4.5 0 - 7.2 % [facility] BASOS 0.9 0 - 2.80 % [facility] Granulocytes, immature (%) 0.3 0.0 - 0.9 % [facility] ABSOLUTE NEUTS 4.49 1.40 - 7.70 K/uL [facility] ABSOLUTE LYMPHS 1.47 0.60 - 3.20 K/uL [facility] ABSOLUTE MONOS 0.54 0.11 - 0.59 K/uL [facility] ABSOLUTE EOS 0.31 0.01 - 0.50 K/uL [facility] ABSOLUTE BASOS 0.06 0.00 - 0.08 K/uL [facility] Granulocytes, immature 0.02 0.00 - 0.05 K/uL [facility] Blood 02/28/2019 7:33 AM EDT 02/28/2019 7:47 AM EDT us Earl Lee MD LAB BLOOD ORDERABLES Final Resu lt [facility] [address] [place] [address] * (ABNORMAL) Basic metabolic panel (02/28/2019 7:33 AM EDT) SODIUM 140 133 - 146 mmol/L [facility] CHLORIDE 106 96 - 108 mmol/L [facility] POTASSIUM 4.3 3.3 - 5.1 mmol/L [facility] CO2 23 21 - 35 mmol/L [facility] BUN 18 6 - 19 mg/dL [facility] CREATININE 1.10 0.5 - 1.5 mg/dL [facility] GLUCOSE 125(H) 70 - 99 mg/dL [facility] CALCIUM 8.2(L) 8.4 - 10.3 mg/dL [facility] EGFR 53(L) >59 mL/min/1.7 3m2 [facility] Comment:If patient is black, multiply result by 1.159. Estimated glomerular filtration rate calculated using the CKD-EPI equation. ANION GAP 15 10 - 20 mmol/L [facility] Blood 02/28/2019 7:33 AM EDT 02/28/2019 7:47 AM EDT us Earl Lee MD LAB BLOOD ORDERABLES Final Resu lt [facility] [address] [place] [address] documented in this encounter Visit Diagnoses Diagnosis High thyroid hormone level- Primary Anemia, unspecified type documented in this encounter Care Teams Metallographic Technician Relationship Specialty Start Date End Date Earl Lee MD [address] [place] [address] 10 [address] [place] [address] [email or web address] PCP - General Internal Medicine 07/04/1811/14 Anne Mayer MD [address] [place] [address] [email or web address] PCP - General Family Medicine 12/06/21 1 08/26/21 Pcp, Unknown PCP - General 06/26/22 04/18/23 Julia Garrido NP [address] [place] [address] PCP - General Nurse Practitioner 04/19/23 documented as of this encounter Additional Source Comments The information contained in this document represents components of the legal health record. It is not the complete legal health record.[facility]
--- OUTSIDE RECORDS SUMMARY | 2025-03-26 08:00 | XMS_ITS | Encounter Summary ---
Author Organization [facility] Address [address] [facility] [address] [place] [address] Phone Care Team Providers Care Steam Powerplant Supervisor Name Role Phone Earl Lee MD Primary Care Provider [phone] Anne Mayer MD Primary Care Provid er Pcp, Unknown Primary Care Provider Julia Bennett NP Primary Care Provid er Encounter Details Date Type Department Care Team (Latest Contact Info) Description 09/22/2021 Transcribe Orders [facility] [address] [facility] 2nd [place] [address] Jesus, Earl Valdes MD [address] [facility] [address] [place] [address] [email or web address] Pain in joint, multiple sites (Primary Dx); Hypertension, unspecified type Social History Tobacco Use Types [...] AM EST Office Visit [facility] [address] [place] [address] Silverio Albrecht, [address] [place] [address] [email or web address] documented as of this encounter Results * (ABNORMAL) Uric acid (09/22/2021 7:38 AM EST) URIC ACID 7.3(H) 2.4 - 7.0 mg/dL [facility] Blood 09/22/2021 7:38 AM EST 09/22/2021 7:49 AM EST Earl Lee MD LAB BLOOD ORDERABLES Final Resu lt Performing Organization Address City/[facility]/ZIP Co de Phone Number [address] [address] * (ABNORMAL) Basic metabolic panel (09/22/2021 7:38 AM EST) SODIUM 139 133 - 146 mmol/L [facility] CHLORIDE 103 96 - 108 mmol/L [facility] POTASSIUM 4.7 3.3 - 5.1 mmol/L [facility] CO2 23 21 - 35 mmol/L [facility] BUN 23(H) 6 - 19 mg/dL [facility] CREATININE 1.40 0.5 - 1.5 mg/dL [facility] GLUCOSE 134(H) 70 - 99 mg/dL [facility] CALCIUM 9.2 8.4 - 10.3 mg/dL [facility] EGFR 41(L) >59 mL/min/1.7 3m2 [facility] Comment:Estimated glomerular filtration rate calculated using the CKD-EPI refit equation. ANION GAP 18 10 - 20 mmol/L [facility] Blood 09/22/2021 7:38 AM EST 09/22/2021 7:49 AM EST Earl Lee MD LAB BLOOD ORDERABLES Final Resu lt [address] [place] [address] documented in this encounter Visit Diagnoses Diagnosis Pain in joint, multiple sites- Primary Hypertension, unspecified type documented in this encounter Care Teams Steam Powerplant Supervisor Relationship Specialty Start Date End Date Earl Lee MD [address] [facility] [address] [place] [address] [email or web address] PCP - General Internal Medicine 07/04/1811/14 Anne Mayer MD [address] [address] [email or web address] PCP - General Family Medicine 12/06/21 1 08/26/21 Pcp, Unknown PCP - General 06/26/22 04/18/23 Julia Garrido NP [address] [address] PCP - General Nurse Practitioner 04/19/23 documented as of this encounter Additional Source Comments The information contained in this document represents components of the legal health record. It is not the complete legal health record.[facility]
--- OUTSIDE RECORDS SUMMARY | 2025-03-26 08:00 | XMS_ITS | Encounter Summary ---
Author Organization [facility] Address [address] [address] Phone Care Team Providers Care Can Sorter Name Role Phone Earl Lee MD Primary Care Provider [phone] Anne Mayer MD Primary Care Provid er Pcp, Unknown Primary Care Provider Julia Bennett NP Primary Care Provid er Encounter Details Date Type Department Care Team (Latest Contact Info) Description 02/06/2019 Transcribe Orders [facility] [address] [place] [address] JesusEarl guzman MD [address] [place] [address] [email or web address] Routine general medical examination at a health care facility (Primary Dx); Hypertension, unspecified type; High glucose; Fatigue, unspecified type Social History Tobacco Use Types [...] AM EST Office Visit [facility] [address] [place] [address] Silverio Albrecht, [address] [place] [address] [email or web address] documented as of this encounter Results * Hemoglobin A1c (02/06/2019 7:32 AM EDT) HEMOGLOBIN A1C 5.3 4.3 - 5.8 % [facility] Blood 02/06/2019 7:32 AM EDT 02/06/2019 8:37 AM EDT Earl Lee MD LAB BLOOD ORDERABLES Final Resu lt [facility] [address] [place] [address] * (ABNORMAL) CBC and differential (02/06/2019 7:32 AM EDT) WBC 7.67 3.40 - 11.20 K/uL [facility] RBC 3.67(L) 3.80 - 4.80 M/uL [facility] HGB 11.8(L) 12.0 - 15.0 g/dL [facility] HCT 34.8(L) 36.0 - 46.0 % [facility] PLT 268 130 - 400 K/uL [facility] MCV 94.8 79.0 - 98.0 [facility] MCH 32.2 27.0 - 34.8 pg [facility] MCHC 33.9 31.5 - 36.0 g/dL [facility] RDW 12.5 10.8 - 14.6 % [facility] MPV 10.6 9.4 - 12.4 [facility] NRBC 0.00 0.00 /100 WBCs [facility] ABSOLUTE NRBC 0.00 0.00 K/uL [facility] DIFF METHOD Auto [facility] NEUTS 64.3 45.30 - 77.70 % [facility] LYMPHS 24.0 12.30 - 39.70 % [facility] MONOS 7.2 4.10 - 12.80 % [facility] EOS 3.5 0 - 7.2 % [facility] BASOS 0.7 0 - 2.80 % [facility] Granulocytes, immature (%) 0.3 0.0 - 0.9 % [facility] ABSOLUTE NEUTS 4.94 1.40 - 7.70 K/uL [facility] ABSOLUTE LYMPHS 1.84 0.60 - 3.20 K/uL [facility] ABSOLUTE MONOS 0.55 0.11 - 0.59 K/uL [facility] ABSOLUTE EOS 0.27 0.01 - 0.50 K/uL [facility] ABSOLUTE BASOS 0.05 0.00 - 0.08 K/uL [facility] Granulocytes, immature 0.02 0.00 - 0.05 K/uL [facility] Blood 02/06/2019 7:32 AM EDT 02/06/2019 8:37 AM EDT Earl Lee MD LAB BLOOD ORDERABLES Final Resu lt Performing Organization Address City/[facility]/ZIP Co de Phone Number [address] [address] * (ABNORMAL) TSH with reflex (02/06/2019 7:32 AM EDT) TSH 0.01(L) 0.27 - 4.20 uIU/mL [facility] Blood 02/06/2019 7:32 AM EDT 02/06/2019 8:37 AM EDT Earl Lee MD LAB BLOOD ORDERABLES Final Resu lt Performing Organization Address City/[facility]/ZIP Co de Phone Number [address] [address] * Lipid panel (02/06/2019 7:32 AM EDT) HDL 32 mg/dL [facility] Comment: Interpretation <40 mg/dL: Low HDL cholesterol (major risk factor for CHD) Greater than or equal to 60 mg/dL: High HDL cholesterol ( negative risk factor for CHD) HDL - cholesterol is affected by a number of factors, e.g. smoking, excerise, hormones, sex and age. CHOLESTEROL 130 0 - 240 mg/dL [facility] TRIGLYCERIDES 107 30 - 160 mg/dL [facility] LDL 77 50 - 129 mg/dL [facility] Comment: LDL levels in terms of risk for coronary heart disease: <100 mg/dL: Optimal 100-129 mg/dL: Near or above optimal 130-159 mg/dL: Borderline high 160-189 mg/dL: High >190 mg/dL: Very High CARDIAC RISK RATIO 4.1 3.3 - 4.4 C [facility] Blood 02/06/2019 7:32 AM EDT 02/06/2019 8:37 AM EDT us Earl Lee MD LAB BLOOD ORDERABLES Final Resu lt Performing Organization Address City/State/[facility] Co de Phone Number [address] [address] * (ABNORMAL) Comprehensive metabolic panel (02/06/2019 7:32 AM EDT) SODIUM 141 133 - 146 mmol/L [facility] POTASSIUM 4.8 3.3 - 5.1 mmol/L [facility] CHLORIDE 105 96 - 108 mmol/L [facility] CO2 24 21 - 35 mmol/L [facility] BUN 24(H) 6 - 19 mg/dL [facility] CREATININE 1.00 0.5 - 1.5 mg/dL [facility] GLUCOSE 145(H) 70 - 99 mg/dL [facility] ALBUMIN 4.0 3.9 - 4.8 g/dL [facility] TOTAL PROTEIN 7.1 6.5 - 8.0 g/dL [facility] CALCIUM 9.0 8.4 - 10.3 mg/dL [facility] ALKALINE PHOSPHATASE 89 39 - 117 U/L [facility] TOTAL BILIRUBIN 0.7 0.0 - 1.2 mg/dL [facility] AST 20 0 - 37 U/L [facility] ALT 21 0 - 40 U/L [facility] GLOBULIN 3.1 1 - 4.8 g/dL [facility] EGFR 59(L) >59 mL/min/1.7 3m2 [facility] Comment:If patient is black, multiply result by 1.159. Estimated glomerular filtration rate calculated using the CKD-EPI equation. ANION GAP 17 10 - 20 mmol/L [facility] Blood 02/06/2019 7:32 AM EDT 02/06/2019 8:37 AM EDT us Earl Lee MD LAB BLOOD ORDERABLES Final Resu lt [facility] [address] [place] [address] documented in this encounter Visit Diagnoses Diagnosis Routine general medical examination at a health care facility- Primary Hypertension, unspecified type High glucose Fatigue, unspecified type documented in this encounter Care Teams Can Sorter Relationship Specialty Start Date End Date Earl Lee MD [address] [place] [address] 10 [address] [place] [address] [email or web address] PCP - General Internal Medicine 07/04/1811/14 Anne Mayer MD [address] [place] [address] PCP - General Family Medicine 12/06/21 1 08/26/21 Pcp, Unknown PCP - General 06/26/22 04/18/23 Julia Garrido NP [address] [place] [address] PCP - General Nurse Practitioner 04/19/23 documented as of this encounter Additional Source Comments The information contained in this document represents components of the legal health record. It is not the complete legal health record.[facility]
--- OUTSIDE RECORDS SUMMARY | 2025-03-26 08:00 | XMS_ITS | Encounter Summary ---
Author Organization [facility] Address [address] [place] [address] Phone Care Team Providers Care Head Of Marketing Adometry Name Role Phone Rafa Bello MD Primary Care Provider Earl Hogue MD Primary Care Provider [phone] Anne Mayer MD Primary Care Provid er Pcp, Unknown Primary Care Provider Julia Bennett NP Primary Care Provid er Encounter Details Date Type Department Care Team (Late st Contact Info) Description 11/09/2017 Ancillary Orders Virtual Department [address] [place] [address] Rafa Bello MD Breast screening Social History Tobacco Use Types Packs/Day Years Used Date Smoking Tobacco: Never Assessed Comments Unknown Sex and Gender Information Value [...] 10:30 AM EST Office Visit [facility] [address] [place] [address] Silverio Albrecht DO [address] [place] [address] documented as of this encounter Results * BI MAMMOGRAM SCREENING WITH TOMOSYNTHESIS WITH CAD (BILATERAL) (12/17/2017 3:51 PM EDT) Anatomical Region Laterality Modality Breast Left, Breast Right, Breast Bilateral Bila teral Mammography 12/18/2017 8:48 AM EDT Impressions 12/18/2017 8:52 AM EDT No findings suspicious for malignancy. In the absence of a worrisome palpable abnormality, annual screening mammography is recommended. BI-RADS CATEGORY: 2 - Benign finding. DENSITY: There are scattered fibroglandular densities. POS CDHMAM2 Narrative 12/18/2017 8:52 AM EDT COMPARISON: 09/15/2008 through 05/16/2016. Bilateral 3-D tomosynthesis with 2-D reconstructions in the CC and MLO projection of each breast was obtained. Computer-aided detection system also utilized. No new mass, asymmetry, architectural distortion or suspicious calcifications have become apparent on either side. 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 Bilateral 3-D tomosynthesis with 2-D reconstructions in the CC and MLOprojection of each breast was obtained. Computer-aided detection systemalso utilized. No new mass, asymmetry, architectural distortion or suspiciouscalcifications have become apparent on either side. Chronic elliptical circumscribed mass in the central left breastunchanged for many years IMPRESSION: No findings suspicious for malignancy. In the absence of a worrisomepalpable abnormality, annual screening mammography is recommended. BI-RADS CATEGORY: 2 - Benign finding. DENSITY: There are scattered fibroglandular densities. POS CDHMAM2 Rafa Bello MD IMG MG EXAMS Final Result documented in this encounter Visit Diagnoses Diagnosis Breast screening Breast screening, unspecified Breast screening Breast screening, unspecified documented in this encounter Care Teams Head Of Marketing Adometry Relationship Specialty Start Date End Date Rafa Bello MD PCP - General 07/19/17 07/03/18 Earl Lee MD 264 [facility] [address] [place] [address] [email or web address] PCP - General Internal Medicine 07/04/18/10/04 Anne Mayer MD [address] [place] [address] [email or web address] PCP - General Family Medicine 12/06/21 1 08/26/21 Pcp, Unknown PCP - General 06/26/22 04/18/23 Julia Garrido NP [address] [address] PCP - General Nurse Practitioner 04/19/23 documented as of this encounter Additional Source Comments The information contained in this document represents components of the legal health record. It is not the complete legal health record.[facility]
--- OUTSIDE RECORDS SUMMARY | 2025-03-26 08:00 | XMS_ITS | Encounter Summary ---
Author Organization [facility] Address [address] [facility] [address] [place] [address] Phone Care Team Providers Care Pipe Fitter Apprentice Name Role Phone Earl Lee MD Primary Care Provider [phone] Anne Mayer MD Primary Care Provid er Pcp, Unknown Primary Care Provider Julia Bennett NP Primary Care Provid er Encounter Details Date Type Department Care Team (Latest Contact Info) Description 03/20/2019 Transcribe Orders [facility] [address] [place] [address] Earl Lee MD [address] [place] [address] [email or web address] Hypertension, unspecified type (Primary Dx); Low thyroid stimulating hormone (TSH) level Social History Tobacco Use Types Packs/Day Years [...] AM EST Office Visit [facility] 22 [place] [address] Silverio Albrecht, DO 22 [place] [address] [email or web address] documented as of this encounter Results * TSH with reflex (03/20/2019 7:30 AM EDT) TSH 1.48 0.27 - 4.20 uIU/mL [facility] Blood 03/20/2019 7:30 AM EDT 03/20/2019 7:33 AM EDT us Earl Lee MD LAB BLOOD ORDERABLES Final Resu lt [facility] [address] [place] [address] * (ABNORMAL) Basic metabolic panel (03/20/2019 7:30 AM EDT) SODIUM 140 133 - 146 mmol/L [facility] CHLORIDE 104 96 - 108 mmol/L [facility] POTASSIUM 4.5 3.3 - 5.1 mmol/L [facility] CO2 24 21 - 35 mmol/L [facility] BUN 20(H) 6 - 19 mg/dL [facility] CREATININE 1.10 0.5 - 1.5 mg/dL [facility] GLUCOSE 198(H) 70 - 99 mg/dL [facility] CALCIUM 8.9 8.4 - 10.3 mg/dL [facility] EGFR 53(L) >59 mL/min/1.7 3m2 [facility] Comment:If patient is black, multiply result by 1.159. Estimated glomerular filtration rate calculated using the CKD-EPI equation. ANION GAP 17 10 - 20 mmol/L [facility] Blood 03/20/2019 7:30 AM EDT 03/20/2019 7:33 AM EDT us Earl Lee MD LAB BLOOD ORDERABLES Final Resu lt [facility] [address] [place] [address] documented in this encounter Visit Diagnoses Diagnosis Hypertension, unspecified type- Primary Low thyroid stimulating hormone (TSH) level documented in this encounter Care Teams Pipe Fitter Apprentice Relationship Specialty Start Date End Date Earl Lee MD 264 [facility] [address] [place] [address] [email or web address] PCP - General Internal Medicine 07/04/1811/14 Anne Mayer MD [address] [address] [email or web address] PCP - General Family Medicine 12/06/21 1 08/26/21 Pcp, Unknown PCP - General 06/26/22 04/18/23 Julia Garrido NP [address] [place] [address] PCP - General Nurse Practitioner 04/19/23 documented as of this encounter Additional Source Comments The information contained in this document represents components of the legal health record. It is not the complete legal health record.[facility]
--- OUTSIDE RECORDS SUMMARY | 2025-03-26 08:00 | XMS_ITS | Encounter Summary ---
Author Organization [facility] Address [address] [place] [address] Phone Care Team Providers Care Roller Engraver Name Role Phone Rafa Bello MD Primary Care Provider Earl Hogue MD Primary Care Provider [phone] Anne Mayer MD Primary Care Provid er Pcp, Unknown Primary Care Provider Julia Bennett NP Primary Care Provid er Encounter Details Date Type Department Care Team (Latest Contact Info) Description 01/21/2018 Transcribe Orders [facility] [address] [place] [address] Rafa Bello MD Hypertension, unspecified type (Primary Dx); Hyperparathyroidism; Impaired fasting blood sugar Social History Tobacco Use Types Packs/Day Years Used Date Smoking Tobacco: Never Assessed Comments No Sex and Gender Information Value [...] 10:30 AM EST Office Visit [facility] [address] [place] [address] Silverio Albrecht DO 22 [place] [address] documented as of this encounter Results * (ABNORMAL) Parathyroid hormone (PTH) (01/21/2018 7:40 AM EDT) Pathologist [facility] PARATHYROID HORMONE 114(H) 15 - 65 pg/mL [facility] Blood 01/21/2018 7:40 AM EDT 01/21/2018 7:44 AM EDT Rafa Bello MD LAB BLOOD ORDERABLES Final Resu lt Performing Organization Address [facility]/ZIP Co de Phone Number [address] [address] * Vitamin B12 (01/21/2018 7:40 AM EDT) [facility] VITAMIN B12 633 232 - 1,245 pg/mL [facility] Comment:The reference range had been changed on October 26, 2017 from 243 - 894pg/mL to 232 - 1245 pg/mL. Blood 01/21/2018 7:40 AM EDT 01/21/2018 7:44 AM EDT Rafa Bello MD LAB BLOOD ORDERABLES Final Resu lt Performing Organization Address [facility] Co de Phone Number [address] [address] * Hemoglobin A1c (01/21/2018 7:40 AM EDT) Pathologist [facility] HEMOGLOBIN A1C 5.6 4.3 - 5.8 % [facility] Blood 01/21/2018 7:40 AM EDT 01/21/2018 7:44 AM EDT Rafa Bello MD LAB BLOOD ORDERABLES Final Resu lt Performing Organization Address [facility] Co de Phone Number [address] [address] * (ABNORMAL) Lipid panel (01/21/2018 7:40 AM EDT) [facility] HDL 36 mg/dL [facility] Comment: Interpretation: Risk Level Females Decreased >55mg/dL Average 50-55 mg/dL Increased <50 mg/dL CHOLESTEROL 172 0 - 240 mg/dL [facility] TRIGLYCERIDES 120 30 - 160 mg/dL [facility] LDL 112 50 - 129 mg/dL [facility] Comment: LDL levels in terms of risk for coronary heart disease: <100 mg/dL: Optimal 100-129 mg/dL: Near or above optimal 130-159 mg/dL: Borderline high 160-189 mg/dL: High >190 mg/dL: Very High CARDIAC RISK RATIO 4.8(H) 3.3 - 4.4 C [facility] Blood 01/21/2018 7:40 AM EDT 01/21/2018 7:44 AM EDT us Rafa Bello MD LAB BLOOD ORDERABLES Final Resu lt Performing Organization Address City/State/[facility] Co de Phone Number [address] [address] * (ABNORMAL) Comprehensive metabolic panel (01/21/2018 7:40 AM EDT) SODIUM 138 133 - 146 mmol/L [facility] POTASSIUM 4.5 3.3 - 5.1 mmol/L [facility] CHLORIDE 104 96 - 108 mmol/L [facility] CO2 25 21 - 35 mmol/L [facility] BUN 19 6 - 19 mg/dL [facility] CREATININE 1.00 0.5 - 1.5 mg/dL [facility] GLUCOSE 124(H) 70 - 99 mg/dL [facility] ALBUMIN 3.7(L) 3.9 - 4.8 g/dL [facility] TOTAL PROTEIN 6.7 6.5 - 8.0 g/dL [facility] CALCIUM 10.1 8.4 - 10.3 mg/dL [facility] ALKALINE PHOSPHATASE 74 39 - 117 U/L [facility] TOTAL BILIRUBIN 0.9 0.0 - 1.2 mg/dL [facility] AST 23 0 - 37 U/L [facility] ALT 26 0 - 40 U/L [facility] GLOBULIN 3.0 1 - 4.8 g/dL [facility] EGFR 59(L) >59 mL/min/1.7 3m2 [facility] Comment:If patient is black, multiply result by 1.159. Estimated glomerular filtration rate calculated using the CKD-EPI equation. ANION GAP 14 10 - 20 mmol/L [facility] Blood 01/21/2018 7:40 AM EDT 01/21/2018 7:44 AM EDT us Rafa Bello MD LAB BLOOD ORDERABLES Final Resu lt [facility] 30 [place] [address] documented in this encounter Visit Diagnoses Diagnosis Hypertension, unspecified type- Primary Hyperparathyroidism Hyperparathyroidism, unspecified Impaired fasting blood sugar Impaired fasting glucose documented in this encounter Care Teams Roller Engraver Relationship Specialty Start Date End Date Rafa Bello MD PCP - General 07/19/17 07/03/18 Jesus, Earl Valdes MD [address] [place] [address] [address] [place] [address] [email or web address] PCP - General Internal Medicine 07/04/1811/14 Anne Mayer MD [address] [address] [email or web address] PCP - General Family Medicine 12/06/21 1 08/26/21 Pcp, Unknown PCP - General 06/26/22 04/18/23 Julia Garrido NP [address] [address] PCP - General Nurse Practitioner 04/19/23 documented as of this encounter Additional Source Comments The information contained in this document represents components of the legal health record. It is not the complete legal health record.[facility]
--- OUTSIDE RECORDS SUMMARY | 2025-03-26 08:00 | XMS_ITS | Encounter Summary ---
Author Organization [facility] Address [address] [place] [address] Phone Care Team Providers Care Rotary Driller Name Role Phone Rafa Bello MD Primary Care Provider Earl Hogue MD Primary Care Provider [phone] Anne Mayer MD Primary Care Provid er Pcp, Unknown Primary Care Provider Julia Bennett NP Primary Care Provid er Encounter Details Date Type Department Care Team (Latest Contact Info) Description 03/27/2018 Transcribe Orders [address] [address] Rafa Bello MD Hypertension, unspecified type (Primary Dx); Hypoparathyroidism, unspecified hypoparathyroidism type Social History Tobacco Use Types Packs/Day [...] 10:30 AM EST Office Visit [facility] [address] [place] [address] Silverio Albrecht DO [address] [place] [address] [email or web address] documented as of this encounter Results * (ABNORMAL) Parathyroid hormone (PTH) (03/27/2018 7:27 AM EDT) PARATHYROID HORMONE 105(H) 15 - 65 pg/mL [facility] Blood 03/27/2018 7:27 AM EDT 03/27/2018 7:39 AM EDT us Rafa Bello MD LAB BLOOD ORDERABLES Final Resu lt Performing Organization Address [facility]/ZIP Co de Phone Number [address] [address] * (ABNORMAL) Basic metabolic panel (03/27/2018 7:27 AM EDT) SODIUM 139 133 - 146 mmol/L [facility] CHLORIDE 104 96 - 108 mmol/L [facility] POTASSIUM 4.5 3.3 - 5.1 mmol/L [facility] CO2 24 21 - 35 mmol/L [facility] BUN 18 6 - 19 mg/dL [facility] CREATININE 1.20 0.5 - 1.5 mg/dL [facility] GLUCOSE 170(H) 70 - 99 mg/dL [facility] CALCIUM 10.4(H) 8.4 - 10.3 mg/dL [facility] EGFR 48(L) >59 mL/min/1.7 3m2 [facility] Comment:If patient is black, multiply result by 1.159. Estimated glomerular filtration rate calculated using the CKD-EPI equation. ANION GAP 16 10 - 20 mmol/L [facility] Blood 03/27/2018 7:27 AM EDT 03/27/2018 7:36 AM EDT us Rafa Bello MD LAB BLOOD ORDERABLES Final Resu lt Performing Organization Address [facility]/ZIP Co de Phone Number [address] [address] documented in this encounter Visit Diagnoses Diagnosis Hypertension, unspecified type- Primary Hypoparathyroidism, unspecified hypoparathyroidism type documented in this encounter Care Teams Rotary Driller Relationship Specialty Start Date End Date Rafa Bello MD PCP - General 07/19/17 07/03/18 Earl Lee MD 264 [facility] [address] [place] [address] [email or web address] PCP - General Internal Medicine 07/04/18/10/04 Anne Mayer MD [address] [address] [email or web address] PCP - General Family Medicine 12/06/21 1 08/26/21 Pcp, Unknown PCP - General 06/26/22 04/18/23 Julia Garrido NP [address] [address] PCP - General Nurse Practitioner 04/19/23 documented as of this encounter Additional Source Comments The information contained in this document represents components of the legal health record. It is not the complete legal health record.[facility]
--- OUTSIDE RECORDS SUMMARY | 2025-03-26 08:00 | XMS_ITS | Encounter Summary ---
Author Organization [facility] Address [address] [facility] [address] [place] [address] Phone Care Team Providers Care Footwear Factory Worker Name Role Phone Anne Mayer MD Primary Care Provid er Pcp, Unknown Primary Care Provider Julia Bennett NP Primary Care Provid er Encounter Details Date Type Department Care Team (Late st Contact Info) Description 12/06/2021 Procedure Pass [facility], [address] [address] Social History Tobacco Use Types Packs/Day Years [...] high school, GED, job training, learning the Bangladeshi language, technical skills, or developing parenting skills)? [...] basis, and looking for work? No 12/03/2021 Comments No Sex and Gender Information Value [...] 10:30 AM EST Office Visit [facility] [address] [place] [address] Silverio Albrecht DO 22 [place] [address] [email or web address] documented as of this encounter Visit Diagnoses Not on filedocumented in this encounter Additional Health Concerns Assessment Noted Time PHQ-2 Depression Total Score: 0 12/04/19 7:00 PM EDT documented as of this encounter Care Teams Footwear Factory Worker Relationship Specialty Start Date End Date Anne Mayer MD [address] [place] [address] [email or web address] PCP - General Family Medicine 12/06/21 1 08/26/21 Pcp, Unknown PCP - General 06/26/22 04/18/23 Julia Garrido NP [address] [place] [address] PCP - General Nurse Practitioner 04/19/23 documented as of this encounter Additional Source Comments The information contained in this document represents components of the legal health record. It is not the complete legal health record.[facility]
--- OUTSIDE RECORDS SUMMARY | 2025-03-26 08:00 | XMS_ITS | Encounter Summary ---
Author Organization [facility] Address [address] [place] [address] Phone Care Team Providers Care Heating Element Winder Name Role Phone Earl Lee MD Primary Care Provider [phone] Anne Mayer MD Primary Care Provid er Pcp, Unknown Primary Care Provider Julia Bennett NP Primary Care Provid er Encounter Details Date Type Department Care Team (Latest Contact Info) Description 03/04/2021 Ancillary Orders Virtual Department 30 [place] [address] Earl Lee MD 264 [facility] [address] [place] [address] [email or web address] Generalized hyperhidrosis; Type 2 diabetes mellitus without complication, unspecified whether long-term insulin use; Essential (primary) hypertension Social History Tobacco Use Types Packs/Day Years [...] 10:30 AM EST Office Visit [facility] [address] [place] [address] [place] [address] AmbrocioSilverio, DO 22 [place] [address] [email or web address] documented as of this encounter Results * NC Stress Result for Nuclear Stress Test (03/04/2021 10:45 AM EDT) Max BP Systolic 220 mmHg [facility] Max BP Diastolic 80 mmHg [facility] Max HR 157 BPM [facility] Resting HR 75 BPM [facility] Resting BP Systolic 190 mmHg [facility] Resting BP Diastolic 90 mmHg [facility] Peak METS 1.0 METS [facility] Peak HR 155 BPM [facility] Anatomical Region Laterality Modality Heart Other 03/04/2021 10:1 9 AM EDT 03/04/2021 10:44 AM EDT Narrative 03/04/2021 3:11 PM EDT Response to Stress The patient exercised for minutes seconds, achieving 1.0 METS at peak exercise. Baseline blood pressure was 190/90 mmHg, and baseline heart rate was 75 bpm. The patient achieved a peak heart rate of 155 bpm, which is% of their maximum predicted heart rate. REPORT- Pt exercised for 4:04 min on a NAY protocol achieving 4.6 METS. Test terminated due to fatigue and SOB. Baseline resting HR was 63. Max heart rate achieved was 157 (102% MPHR). 1. EKG - Baseline EKG showed normal sinus rhythm. During exercise and recovery, there were up to 1.[address] depressions in the inferior leads and V3 through V6. 2. SYMPTOMS - No chest pain. Patient reported shortness of breath immediately after exercise began which worsened throughout testing and was associated with audible wheezing. Symptoms returned to baseline by 2 to 3 minutes into recovery. 3. EXERCISE PHYSIOLOGY - Hypertensive throughout. Baseline blood pressure was 190/90 and leeanne to 212/96 at peak exercise. Blood pressure was 142/90 upon discharge from the stress lab. Fair functional capacity for age. 4. ARRHYTHMIAS - Frequent PACs. Conclusion - Abnormal stress test with EKG evidence suggestive of ischemia and with moderate to severe SOB that may be concerning for angina. Hypertensive response to exercise noted. Frequent atrial ectopy. Nuclear images pending and will be reported separately. Carina Kamara PA-C with Dr. Du. . Earl Lee MD CV NM CARDIAC Final Result documented in this encounter Visit Diagnoses Diagnosis Generalized hyperhidrosis Type 2 diabetes mellitus without complication, unspecified whether long-term insulin use Essential (primary) hypertension Unspecified essential hypertension Generalized hyperhidrosis Type 2 diabetes mellitus without complication, unspecified whether long-term insulin use Essential (primary) hypertension Unspecified essential hypertension documented in this encounter Care Teams Heating Element Winder Relationship Specialty Start Date End Date Earl Lee MD [address] [place] [address] [address] [place] [address] [email or web address] PCP - General Internal Medicine 07/04/1811/14 Anne Mayer MD [address] [place] [address] [email or web address] PCP - General Family Medicine 12/06/21 1 08/26/21 Pcp, Unknown PCP - General 06/26/22 04/18/23 Julia Garrido NP [address] [address] PCP - General Nurse Practitioner 04/19/23 documented as of this encounter Additional Source Comments The information contained in this document represents components of the legal health record. It is not the complete legal health record.[facility]
--- OUTSIDE RECORDS SUMMARY | 2025-03-26 08:01 | XMS_ITS | Encounter Summary ---
Author Organization [facility] Address [address] [place] [address] Phone Care Team Providers Care Cook Railroad Name Role Phone Earl Lee MD Primary Care Provider [phone] Anne Mayer MD Primary Care Provid er Pcp, Unknown Primary Care Provider Julia Bennett NP Primary Care Provid er Reason for Referral * MRI/CAT Scan - Closed Specialty Diagnoses / Procedures Referred By Vanessa t Referred To Contact Radiology Diagnoses Generalized hyperhidrosis Type 2 diabetes mellitus without complication, unspecified whether intermediate insulin use Essential (primary) hypertension Procedures NC Myocardial Perfusion Pharmacologic Stress Multiple Earl Lee MD Phone: tel: fax: [email or web address] Referral ID Status Reason Start Date Expiration Date Visits Re quested Visits Authorized [id number] Closed 02/22/2021 02/22/2022 4 4 Encounter Details Date Type Department Care Team (Latest Contact Info) Description 02/22/2021 Transcribe Orders [facility] Department [address] [place] [address] Earl Lee MD 264 [facility] [address] [place] [address] [email or web address] Generalized hyperhidrosis (Primary Dx); Type 2 diabetes mellitus without complication, unspecified whether terminal worker insulin use; Essential (primary) hypertension Social History [...] 10:30 AM EST Office Visit [facility] [address] [place] [address] Silverio Albrecht DO [address] [place] [address] [email or web address] documented as of this encounter Results * NC Myocardial Perfusion Pharmacologic Stress Multiple (03/04/2021 11:43 AM EDT) Anatomical Region Laterality Modality Heart, Vascular Nuclear Medicine 03/04/2021 12:2 7 PM EDT Impressions 03/04/2021 12:32 PM EDT No findings suspicious for ischemia or infarction. Ejection fraction = 68%. Narrative 03/04/2021 12:32 PM EDT HISTORY : Chest pain. COMPARISON: None. TECHNIQUE: An exercise stress test was performed following Sherman protocol. Patient exercised for total of 4minutes and 04seconds stopping due to fatigue and shortness breath. Target heart rate was achieved at the time of injection. DOSE: 9.9 mCi Tc-99m sestamibi and 30.8 mCi Tc-99m sestamibi FINDINGS: There appears to be normal distribution of tracer throughout the left ventricular myocardium on both stress and rest. No suspicious fixed or reversible defects. No evidence of heart wall motion abnormalities. Ejection fraction is calculated to be 68% which is within normal limits. T.I.D. ratio calculated to be 0.81. Procedure Note Antonio Valenzuela MD - 03/04/2021 HISTORY : Chest pain. COMPARISON: None. TECHNIQUE: An exercise stress test was performed following Bruceprotocol. Patient exercised for total of 4minutes and 04seconds stoppingdue to fatigue and shortness breath. Target heart rate was achieved at thetime of injection. DOSE: 9.9 mCi Tc-99m sestamibi and 30.8 mCi Tc-99m sestamibi FINDINGS: There appears to be normal distribution of tracer throughout the leftventricular myocardium on both stress and rest. No suspicious fixed orreversible defects. No evidence of heart wall motion abnormalities. Ejection fraction is calculated to be 68% which is within normal limits. T.I.D. ratio calculated to be 0.81. IMPRESSION: No findings suspicious for ischemia or infarction. Ejection fraction =68%. Earl Lee MD [facility] CARDIAC Final Result documented in this encounter Visit Diagnoses Diagnosis Generalized hyperhidrosis- Primary Type 2 diabetes mellitus without complication, unspecified whether terminal worker insulin use Essential (primary) hypertension Unspecified essential hypertension Generalized hyperhidrosis Type 2 diabetes mellitus without complication, unspecified whether terminal worker insulin use Essential (primary) hypertension Unspecified essential hypertension documented in this encounter Care Teams Cook Railroad Relationship Specialty Start Date End Date Earl Lee MD [address] [place] [address] [address] [place] [address] [email or web address] PCP - General Internal Medicine 07/04/1811/14 Anne Mayer MD [address] [place] [address] [email or web address] PCP - General Family Medicine 12/06/21 1 08/26/21 Pcp, Unknown PCP - General 06/26/22 04/18/23 Julia Garrido NP [address] [address] PCP - General Nurse Practitioner 04/19/23 documented as of this encounter Additional Source Comments The information contained in this document represents components of the legal health record. It is not the complete legal health record.[facility]
--- OUTSIDE RECORDS SUMMARY | 2025-03-26 08:01 | XMS_ITS | Encounter Summary ---
Author Organization [facility] Replaced By [facility] Address [address] [address] Phone Care Team Providers Care Bag Presser Name Role Phone Julia Garrido DIRECTOR STERILE PROCESSING Primary Care Provid er Encounter Details Date Type Department Care Team (Late st Contact Info) Description 10/30/2024 Transcribe Orders [facility] [address] [place] [address] Julia Garrido, MICHAELA [address] [place] [address] [address] [place] [address] Unspecified general medical examination (Primary Dx); Type 2 diabetes mellitus without complication, without long-term current use of insulin; Essential hypertension, malignant; Chronic renal disease, stage II Social History Tobacco Use Types Packs/Day Years [...] 10:30 AM EST Office Visit [facility] [address] [place] [address] Silverio Albrecht, [address] [place] [address] [email or web address] documented as of this encounter Results * Aspartate aminotransferase (AST) (10/30/2024 7:47 AM EDT) AST 32 0 - 37 U/L [facility] Blood 10/30/2024 7:47 AM EDT 10/30/2024 7:53 AM EDT us Julia Garrido DIRECTOR STERILE PROCESSING LAB BLOOD ORDERABLES Final Result Performing Organization Address [facility]/ZIP Co de Phone Number [address] [address] * Alanine aminotransferase (ALT) (10/30/2024 7:47 AM EDT) ALT 24 0 - 40 U/L [facility] Blood 10/30/2024 7:47 AM EDT 10/30/2024 7:53 AM EDT us Julia Garrido DIRECTOR STERILE PROCESSING LAB BLOOD ORDERABLES Final Result Performing Organization Address [facility]/ZIP Co de Phone Number [address] [address] * (ABNORMAL) Hemoglobin A1c (10/30/2024 7:47 AM EDT) Pathologist [facility] [place] HEMOGLOBIN A1C 6.9(H) 4.3 - 5.8 % [facility] Blood 10/30/2024 7:47 AM EDT 10/30/2024 7:53 AM EDT us Julia Garrido DIRECTOR STERILE PROCESSING LAB BLOOD ORDERABLES Final Result Performing Organization Address [facility] Co de Phone Number [address] [address] * (ABNORMAL) CBC and differential (10/30/2024 7:47 AM EDT) WBC 6.82 4.00 - 11.00 K/uL [facility] RBC 4.08 4.00 - 5.20 M/uL [facility] HGB 13.4 12.0 - 16.0 g/dL [facility] HCT 40.4 36.0 - 46.0 % [facility] PLT 251 150 - 450 K/uL [facility] MCV 99.0 80.0 - 100.0 fL [facility] MCH 32.8(H) 27.0 - 31.0 pg [facility] MCHC 33.2 32.0 - 36.0 g/dL [facility] RDW 14.4 11.5 - 14.5 % [facility] MPV 10.4 8.4 - 12.0 fL [facility] NRBC 0.00 0.00 /100 WBCs [facility] ABSOLUTE NRBC 0.00 0.00 K/uL [facility] DIFF METHOD Auto [facility] NEUTS 58.6 48.0 - 76.0 % [facility] LYMPHS 22.6 18.0 - 41.0 % [facility] MONOS 12.2(H) 4.0 - 11.0 % [facility] EOS 5.9(H) 0.0 - 5.0 % [facility] BASOS 0.4 0.0 - 1.5 % [facility] Granulocytes, immature (%) 0.3 0.0 - 0.9 % [facility] ABSOLUTE NEUTS 4.00 1.92 - 7.60 K/uL [facility] ABSOLUTE LYMPHS 1.54 0.72 - 4.10 K/uL [facility] ABSOLUTE MONOS 0.83 0.16 - 1.10 K/uL [facility] ABSOLUTE EOS 0.40 0.00 - 0.50 K/uL [facility] ABSOLUTE BASOS 0.03 0.00 - 0.15 K/uL [facility] Granulocytes, immature 0.02 0.00 - 0.09 K/uL [facility] Blood 10/30/2024 7:47 AM EDT 10/30/2024 7:53 AM EDT us Julia Garrido NP LAB BLOOD ORDERABLES Final Result [facility] [address] [place] [address] * Lipid panel (10/30/2024 7:47 AM EDT) HDL 32 mg/dL [facility] Comment: Interpretation <40 mg/dL: Low HDL cholesterol (major risk factor for CHD) Greater than or equal to 60 mg/dL: High HDL cholesterol ( negative risk factor for CHD) HDL - cholesterol is affected by a number of factors, e.g. smoking, excerise, hormones, sex and age. CHOLESTEROL 129 0 - 240 mg/dL [facility] TRIGLYCERIDES 151 30 - 160 mg/dL [facility] LDL 67 50 - 129 mg/dL [facility] Comment: LDL levels in terms of risk for coronary heart disease: <100 mg/dL: Optimal 100-129 mg/dL: Near or above optimal 130-159 mg/dL: Borderline high 160-189 mg/dL: High >190 mg/dL: Very High CARDIAC RISK RATIO 4.0 3.3 - 4.4 C [facility] Blood 10/30/2024 7:47 AM EDT 10/30/2024 7:53 AM EDT us Julia Garrido DIRECTOR STERILE PROCESSING LAB BLOOD ORDERABLES Final Result Performing Organization Address City/[facility]/ZIP Co de Phone Number [address] [address] * (ABNORMAL) Basic metabolic panel (10/30/2024 7:47 AM EDT) SODIUM 137 133 - 146 mmol/L [facility] CHLORIDE 98 96 - 108 mmol/L [facility] POTASSIUM 4.4 3.3 - 5.1 mmol/L [facility] CO2 25 21 - 35 mmol/L [facility] BUN 32(H) 6 - 19 mg/dL [facility] CREATININE 2.30(H) 0.5 - 1.5 mg/dL [facility] GLUCOSE 168(H) 70 - 99 mg/dL [facility] CALCIUM 9.3 8.4 - 10.3 mg/dL [facility] EGFR 22(L) >59 mL/min/1.7 3m2 [facility] Comment:Estimated glomerular filtration rate calculated using the CKD-EPI refit equation. ANION GAP 18 10 - 20 mmol/L [facility] Blood 10/30/2024 7:47 AM EDT 10/30/2024 7:53 AM EDT us Julia Garrido NP LAB BLOOD ORDERABLES Final Result [address] [address] documented in this encounter Visit Diagnoses Diagnosis Unspecified general medical examination- Primary Type 2 diabetes mellitus without complication, without long-term current use of insulin Essential hypertension, malignant Chronic renal disease, stage II Chronic kidney disease, Stage II (mild) documented in this encounter Additional Health Concerns Assessment Noted Time PHQ-2 Depression Total Score: 0 12/04/19 22 7:00 PM EDT documented as of this encounter Care Teams Bag Presser Relationship Specialty Start Date End Date Julia Garrido NP [address] [place] [address] PCP - General Nurse Practitioner 04/19/23 documented as of this encounter Additional Source Comments The information contained in this document represents components of the legal health record. It is not the complete legal health record.[facility]
--- OUTSIDE RECORDS SUMMARY | 2025-03-26 08:01 | XMS_ITS | Encounter Summary ---
Author Organization [facility] Address [address] [facility] [address] [place] [address] Phone Care Team Providers Care Site Interpreter Name Role Phone Earl Lee MD Primary Care Provider [phone] Anne Mayer MD Primary Care Provid er Pcp, Unknown Primary Care Provider Julia Bennett NP Primary Care Provid er Encounter Details Date Type Department Care Team (Latest Contact Info) Description 05/09/2019 Transcribe Orders [facility] [address] [place] [address] Earl Lee MD [address] [place] [address] [email or web address] Hypertension, unspecified type (Primary Dx); Low thyroid [...] AM EST Office Visit [facility] [address] [place] [address] Silverio Albrecht, DO 22 [place] [address] [email or web address] documented as of this encounter Results * TSH with reflex (05/09/2019 7:35 AM EDT) TSH 1.12 0.27 - 4.20 uIU/mL [facility] Blood 05/09/2019 7:35 AM EDT 05/09/2019 7:58 AM EDT us Earl Lee MD LAB BLOOD ORDERABLES Final Resu lt [facility] [address] [place] [address] * (ABNORMAL) Basic metabolic panel (05/09/2019 7:35 AM EDT) SODIUM 140 133 - 146 mmol/L [facility] CHLORIDE 106 96 - 108 mmol/L [facility] POTASSIUM 4.7 3.3 - 5.1 mmol/L [facility] CO2 23 21 - 35 mmol/L [facility] BUN 30(H) 6 - 19 mg/dL [facility] CREATININE 1.50 0.5 - 1.5 mg/dL [facility] GLUCOSE 127(H) 70 - 99 mg/dL [facility] CALCIUM 8.6 8.4 - 10.3 mg/dL [facility] EGFR 36(L) >59 mL/min/1.7 3m2 [facility] Comment:If patient is black, multiply result by 1.159. Estimated glomerular filtration rate calculated using the CKD-EPI equation. ANION GAP 16 10 - 20 mmol/L [facility] Blood 05/09/2019 7:35 AM EDT 05/09/2019 7:58 AM EDT us Earl Lee MD LAB BLOOD ORDERABLES Final Resu lt [facility] [address] [place] [address] documented in this encounter Visit Diagnoses Diagnosis Hypertension, unspecified type- Primary Low thyroid stimulating hormone (TSH) level documented in this encounter Care Teams Site Interpreter Relationship Specialty Start Date End Date Earl Lee MD 264 [facility] [address] [place] [address] [email or web address] PCP - General Internal Medicine 07/04/1811/14 Anne Mayer MD [address] [address] [email or web address] PCP - General Family Medicine 12/06/21 1 08/26/21 Pcp, Unknown PCP - General 06/26/22 04/18/23 Julia Garrido NP [address] [place] [address] PCP - General Nurse Practitioner 04/19/23 documented as of this encounter Additional Source Comments The information contained in this document represents components of the legal health record. It is not the complete legal health record.[facility]
--- OUTSIDE RECORDS SUMMARY | 2025-03-26 08:01 | XMS_ITS | Clinical Summary ---
Author Organization [facility] Address [address] [facility] [address] [place] [address] Phone Care Team Providers Care Professional Development Director Name Role Phone Julia Garrido MANAGER PRIMARY-C Primary Care Provider + Allergies No known [...] that she does plan on traveling to [place] and since this medication is administered every [...] complete [place] [phone] Medicare [facility] [place] [address] Medicare [facility] Care Teams Professional Development Director Relationship Specialty Start Date End Date Julia Garrido NP-C [address], [address] [place] [address] PCP - General Nurse Practitioner 10/24/22
--- OUTSIDE RECORDS SUMMARY | 2025-03-26 08:01 | XMS_ITS | Encounter Summary ---
Author Organization [facility] Address [address] [facility] [address] [place] [address] Phone Care Team Providers Care Insurance Account Executive Name Role Phone Earl Lee MD Primary Care Provider Anne Mayer MD Primary Care Provid er Pcp, Unknown Primary Care Provider Julia Bennett NP Primary Care Provid er Encounter Details Date Type Department Care Team (Latest Contact Info) Description 02/18/2021 Transcribe Orders [address] [address] Jesus, Earl Valdes MD [address] [place] [address] [address] [email or web address] Type 2 diabetes mellitus without complication, unspecified whether sales porter insulin use (Primary Dx); High cholesterol Social History Tobacco Use Types Packs/Day Years [...] AM EST Office Visit [facility] 22 [place] [address] Silverio Albrecht DO 22 [place] [address] [email or web address] documented as of this encounter Results * CPK (creatine kinase) (02/18/2021 8:14 AM EDT) CREATINE KINASE 92 21 - 215 U/L [facility] Blood 02/18/2021 8:14 AM EDT 02/18/2021 8:19 AM EDT Earl Lee MD LAB BLOOD ORDERABLES Final Resu lt Performing Organization Address City/[facility]/ZIP Co de Phone Number [address] [address] * Hemoglobin A1c (02/18/2021 8:14 AM EDT) HEMOGLOBIN A1C 5.8 4.3 - 5.8 % [facility] Blood 02/18/2021 8:14 AM EDT 02/18/2021 8:19 AM EDT Earl Lee MD LAB BLOOD ORDERABLES Final Resu lt [address] [address] * (ABNORMAL) Comprehensive metabolic panel (02/18/2021 8:14 AM EDT) SODIUM 139 133 - 146 mmol/L [facility] POTASSIUM 5.0 3.3 - 5.1 mmol/L [facility] CHLORIDE 104 96 - 108 mmol/L [facility] CO2 25 21 - 35 mmol/L [facility] BUN 25(H) 6 - 19 mg/dL [facility] CREATININE 1.60(H) 0.5 - 1.5 mg/dL [facility] GLUCOSE 132(H) 70 - 99 mg/dL [facility] ALBUMIN 4.3 3.9 - 4.8 g/dL [facility] TOTAL PROTEIN 7.2 6.5 - 8.0 g/dL [facility] CALCIUM 9.2 8.4 - 10.3 mg/dL [facility] ALKALINE PHOSPHATASE 61 39 - 117 U/L [facility] TOTAL BILIRUBIN 1.0 0.0 - 1.2 mg/dL [facility] AST 30 0 - 37 U/L [facility] ALT 29 0 - 40 U/L [facility] GLOBULIN 2.9 1 - 4.8 g/dL [facility] EGFR 33(L) >59 mL/min/1.7 3m2 [facility] Comment:Estimated glomerular filtration rate calculated using the CKD-EPI equation. ANION GAP 15 10 - 20 mmol/L [facility] Blood 02/18/2021 8:14 AM EDT 02/18/2021 8:19 AM EDT Earl Lee MD LAB BLOOD ORDERABLES Final Resu lt [facility] 30 [place] [address] * (ABNORMAL) Lipid panel (02/18/2021 8:14 AM EDT) HDL 35 mg/dL [facility] Comment: Interpretation <40 mg/dL: Low HDL cholesterol (major risk factor for CHD) Greater than or equal to 60 mg/dL: High HDL cholesterol ( negative risk factor for CHD) HDL - cholesterol is affected by a number of factors, e.g. smoking, excerise, hormones, sex and age. CHOLESTEROL 180 0 - 240 mg/dL [facility] TRIGLYCERIDES 148 30 - 160 mg/dL [facility] LDL 115 50 - 129 mg/dL [facility] Comment: LDL levels in terms of risk for coronary heart disease: <100 mg/dL: Optimal 100-129 mg/dL: Near or above optimal 130-159 mg/dL: Borderline high 160-189 mg/dL: High >190 mg/dL: Very High CARDIAC RISK RATIO 5.1(H) 3.3 - 4.4 C [facility] Blood 02/18/2021 8:14 AM EDT 02/18/2021 8:19 AM EDT Earl Lee MD LAB BLOOD ORDERABLES Final Resu lt [facility] [address] [place] [address] documented in this encounter Visit Diagnoses Diagnosis Type 2 diabetes mellitus without complication, unspecified whether mcc insulin use- Primary High cholesterol Pure hypercholesterolemia documented in this encounter Care Teams Insurance Account Executive Relationship Specialty Start Date End Date Earl Lee MD [address] [place] [address] [address] [place] [address] [email or web address] PCP - General Internal Medicine 07/04/18/10/04 Anne Mayer MD [address] [place] [address] [email or web address] PCP - General Family Medicine 12/06/21 1 08/26/21 Pcp, Unknown PCP - General 06/26/22 04/18/23 Julia Garrido NP [address] [address] PCP - General Nurse Practitioner 04/19/23 documented as of this encounter Additional Source Comments The information contained in this document represents components of the legal health record. It is not the complete legal health record[facility]
[2025-03-26 11:31] LABS: Anion Gap 15 (12-20); Blood Urea Nitrogen 29 mg/dL (9-16); Carbon Dioxide 19 mmol/L (22-29); Chloride 112 mmol/L (96-108); Estimated Glomerular Filt Rate 33; Potassium 4.7 mmol/L (3.3-5.1); Sodium 141 mmol/L (135-145)
== END 2025-03-26 07:55 | disposition home or self-care (01) ==
LOC: HO.10HDL 07:54
PROVIDERS: Visit Provider Internal Medicine Nephrology
DX: I12.9 Hypertensive chronic kidney disease with stage 1 through stage 4 chronic kidney disease, or unspecified chronic kidney disease (principal); N18.31 Chronic kidney disease, stage 3a
CPT/HCPCS: 36415; 80051; 82565; 84520

== ENCOUNTER 2025-03-27 09:47 | Outpatient (AMB) | payer MEDICARE, OTHER, SELFPAY ==
--- NOTE | 2025-03-27 09:57 | HO.NEPHOV_ITS ---
Vital Signs 03/27/25 09:59 Height 5 ft Weight 190 lb 6 oz BMI 37.2 BP 132/70 Blood Pressure Location Lt brachial Position Sitting Pulse 85 Pulse Source Pulse Oximeter Pulse Oximetry (%) 97 Oxygen Delivery Method Room Air Intake Visit Reasons: 6 MO FU-[facility] [employer] Required: No Accompanied by: Self / Same As Patient Allergies No Known Allergies Allergy (Verified 03/27/25 09:59) HPI Comments Details: Anneliese was seen in follow-up of her chronic kidney disease and hypertension. Her blood sugars are well controlled on metformin. She is hypertensive and is on 3 medications including valsartan, atenolol and amlodipine. She has not a smoker. Her dad had ESRD from diabetes mellitus and at age of 76. Her mother's mother had anti GBM disease. She had kidney stones when she was young. She has family history of kidney stones.(daughter and brother). She used to take Aleve in the past but does not take these days. She is on allopurinol for hyperuricemia. She has osteopenia as well as osteoporosis. She denies any hematuria, froth or foam in the urine. She has no history of edema, hearing issues, epistaxis, history of coronary artery disease, renal artery stenosis, congestive heart failure, peripheral arterial disease, carotid stenosis or CVA. She has no history of retinopathy or neuropathy. 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 Calculus of kidney Hypertension Surgical History History of squamous cell carcinoma excision History of parathyroidectomy Family History Father Diabetes Kidney disease Brother Diabetes Hypertension Maternal Grandmother Kidney disease Social History Alcohol intake: never Patient Tobacco Use Status: Never used Tobacco Review of Systems Const All systems reviewed & are unremarkable except as noted in HPI and below Physical Exam Vital Signs: Last Vital Signs Pulse 85 03/27/25 09:59 BP 132/70 03/27/25 09:59 Pulse Ox 97 03/27/25 09:59 Oxygen Delivery Method Room Air 03/27/25 09:59 BMI result Body Mass Index 37.2 Const General: comfortable and no acute distress Orientation/consciousness: patient oriented x3 HEENT Head: Yes normocephalic Mouth: Normal oral and palatal mucosa present Eyes EOM: EOMs intact bilaterally Neck Neck: Yes supple Resp Auscultation: clear to auscultation bilaterally Cardio Jugular venous distension: no JVD Rate: regular rate GI Palpation (GI): Soft to palpation Auscultation: normal bowel sounds General: Yes no CVA tenderness Back/Spine/Pelvis Back: no CVA tenderness Skin General skin exam: no rashes or lesions noted Neuro General: patient oriented x3 and moves all extremities Extrem General: Yes no pedal edema Results Reviewed Nephrology Results: Sodium, (135-145) 141 mmol/L 03/26/25 Potassium, (3.3-5.1) 4.7 mmol/L 03/26/25 Chloride, (96-108) 112 mmol/L H 03/26/25 Carbon Dioxide, (22-29) 19 mmol/L L 03/26/25 BUN, (9-16) 29 mg/dL H 03/26/25 Creatinine, (0.5-1.4) 1.53 mg/dL H 03/26/25 Urine Creatinine 114.25 mg/dL 03/21/24 Protein/Creatinin Ratio, (<0.2) 0.11 03/21/24 Assessment & Plan Assessment & Plan (1) CKD (chronic kidney disease) stage 3, GFR 30-59 ml/min: Code(s): N18.30 - Chronic kidney disease, stage 3 unspecified Category: Medical Qualifiers: Chronic kidney disease stage 3 subtype: stage 3a (GFR 45-59) Qualified Code(s): N18.31 - Chronic kidney disease, stage 3a (2) Hypertension: Code(s): I10 - Essential (primary) hypertension Category: Medical Qualifiers: Hypertension type: primary hypertension Qualified Code(s): I10 - Essential (primary) hypertension Plan Anneliese has chronic kidney disease for long time likely from hypertension. Doppler of her renal arteries in the past did not show any renal artery stenosis. She is on angiotensin receptor jus. She is on three blood pressure medications and her blood pressure has been at goal. She will be benefitted from losing some weight and maintaining low-sodium diet. She tries to keep up with good hydration. She is on SGLT2 inhibitor. If her serum creatinine goe sup, I plan to back off on ARB. I did not make any medication changes today. Follow-up appointment given Orders: Orders Protein Creatinine Ratio, Ur 7 Months I10 - Essential (primary) hypertension, N18.31 - Chronic kidney disease, stage 3a Electrolytes 7 Months I10 - Essential (primary) hypertension, N18.31 - Chronic kidney disease, stage 3a Creatinine 7 Months I10 - Essential (primary) hypertension, N18.31 - Chronic kidney disease, stage 3a Blood Urea Nitrogen 7 Months I10 - Essential (primary) hypertension, N18.31 - Chronic kidney disease, stage 3a Coding Level of Care Code Est Pt Level 4 (45150) Diagnoses Stage 3a chronic kidney disease N18.31 Chronic kidney disease stage 3 subtype: stage 3a (GFR 45-59) Primary hypertension I10 Hypertension type: primary hypertension
[2025-03-27 09:59] VITALS: BP 132/70; PULSE 85; O2SAT 97; BMI 37.2
--- OUTSIDE RECORDS SUMMARY | 2025-03-27 10:59 | XMS_ITS | Clinical Summary ---
Author Organization [facility] Address [address] [place] [address] Phone Care Team Providers Care Crime Lab Technician Name Role Phone Julia Garrido JIGGER ARTISAN-C Primary Care Provider + Allergies No known [...] she does plan on traveling to [place] and since this medication is administered every [...] complete [place] [id number] Medicare [facility] [place] [address] Medicare [facility] Care Teams Crime Lab Technician Relationship Specialty Start Date End Date Julia Garrido NP-C [address], [address] [place] [address] PCP - General Nurse Practitioner 10/24/22
== END 2025-03-27 10:10 | disposition home or self-care (01) ==
LOC: HO.HKA 09:47
PROVIDERS: PCP Nurse Practitioner Primary Care; Visit Provider Internal Medicine Nephrology
DX: N18.31 Chronic kidney disease, stage 3a (principal); I10 Essential (primary) hypertension
CPT/HCPCS: 99214

== ENCOUNTER → 2025-03-27 09:47 | Outpatient (BNVA) | payer MEDICARE, OTHER, SELFPAY | PROVIDERS: PCP Nurse Practitioner Primary Care; Visit Provider Internal Medicine Nephrology | DX: N18.31 Chronic kidney disease, stage 3a (principal); I10 Essential (primary) hypertension | CPT/HCPCS: 99212 ==